=== PATIENT | female | born 1985 | race Caucasian/White ===

== ENCOUNTER 2018-08-08 21:33 | Emergency (ER) | payer OTHER, SELFPAY ==
--- NOTE | 2018-08-08 22:06 | EDPHYS ---
Physician Documentation [facility] Name: Reina Clements Age: 32 yrs Sex: Female : 1985 Arrival Date: 08/08/2018 Time: 21:34 Bed 24 Private MD: ED Physician Ishmael Ferreira HPI: 08/08 22:00 This 32 yrs old Female presents to ER via Ambulatory with complaints of pkl Animal Bite. 22:00 The patient presents with an abrasion. The complaints affect the right ankle. Onset: pkl The symptoms/episode began/occurred just prior to arrival. Context: Scratched by raccoon . Associated signs and symptoms: The patient has no apparent associated signs or symptoms. 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 - Social history:: Smoking status: Patient uses tobacco products, smokes one-half pack cigarettes per day. - Ebola Screening: : Patient denies travel to an Ebola-affected area in the 21 days before illness onset. ROS: 22:00 Eyes: Negative for injury, pain, redness, and discharge, ENT: Negative for injury, pkl pain, and discharge, Neck: Negative for injury, pain, and swelling, Cardiovascular: Negative for chest pain, palpitations, and edema, Respiratory: Negative for shortness of breath, cough, wheezing, and pleuritic chest pain, Abdomen/GI: Negative for abdominal pain, nausea, vomiting, diarrhea, and constipation, Back: Negative for injury and pain, : Negative for injury, bleeding, discharge, and swelling, Neuro: Negative for headache, weakness, numbness, tingling, and seizure. 22:00 MS/extremity: Positive for abrasion, of the right ankle. 22:00 Neuro: Negative for altered mental status. Exam: 22:00 Head/Face: Normocephalic, atraumatic. Eyes: Pupils equal round and reactive to light, pkl extra-ocular motions intact. Lids and lashes normal. Conjunctiva and sclera are non-icteric and not injected. Cornea within normal limits. Periorbital areas with no swelling, redness, or edema. ENT: Nares patent. No nasal discharge, no septal abnormalities noted. Tympanic membranes are normal and external auditory canals are clear. Oropharynx with no redness, swelling, or masses, exudates, or evidence of obstruction, uvula midline. Mucous membranes moist. Neck: Trachea midline, no thyromegaly or masses palpated, and no cervical lymphadenopathy. Supple, full range of motion without nuchal rigidity, or vertebral point tenderness. No Meningismus. Chest/axilla: Normal chest wall appearance and motion. Nontender with no deformity. No lesions are appreciated. Cardiovascular: Regular rate and rhythm with a normal S1 and S2. No gallops, murmurs, or rubs. Normal PMI, no JVD. No pulse deficits. Respiratory: Lungs have equal breath sounds bilaterally, clear to auscultation and percussion. No rales, rhonchi or wheezes noted. No increased work of breathing, no retractions or nasal flaring. Abdomen/GI: Soft, non-tender, with normal bowel sounds. No distension or tympany. No guarding or rebound. No evidence of tenderness throughout. Back: No spinal tenderness. No costovertebral tenderness. Full range of motion. Neuro: Awake and alert, GCS 15, oriented to person, place, time, and situation. Cranial nerves II-XII grossly intact. Motor strength 5/5 in all extremities. Sensory grossly intact. Cerebellar exam normal. Normal gait. 22:00 Musculoskeletal/extremity: Extremities: grossly normal except: noted in the right ankle: abrasion. Vital Signs: 21:44 BP 122 / 72; Pulse 88; Resp 18; Temp 97.7(TE); Pulse Ox 99% on R/A; Weight 56.7 kg (R); aj1 Height 5 ft. 3 in. (160.02 cm) (R); Pain 0/10; 21:44 Body Mass Index 22.14 (56.70 kg, 160.02 cm) aj1 MDM: 21:54 Patient medically screened. pkl 22:00 Data reviewed: vital signs, nurses notes. 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 Exp: rv 08/04/2020. Lot #: [id number]. } Route: IM; Site: right deltoid; 22:20 Follow up: Response: Medication administered at discharge. rv Disposition: 08/08/18 22:05 Discharged to Home. Impression: Abrasions right ankle. Scratched by raccoon. - Condition is Stable. - Medication Reconciliation Form, Thank You Letter, Antibiotic Education, Prescription Opioid Use form. - Follow up: Private Physician; When: 2 - 3 days; Reason: Re-evaluation by your physician. - Problem is new. - Symptoms have improved. Signatures: Chloe Cat RN RN aj1 Ishmael Ferreira MD MD pkl Salbador Trent RN RN rv Corrections: (The following items were deleted from the chart) 22:19 22:05 08/08/2018 22:05 Discharged to Home. Impression: Abrasions right ankle. Scratched rv by raccoon. Condition is Stable. Forms are Medication Reconciliation Form, Thank You Letter, Antibiotic Education, Prescription Opioid Use. Follow up: Private Physician; When: 2 - 3 days; Reason: Re-evaluation by your physician. Problem is new. Symptoms have improved. pkl
--- NOTE | 2018-08-08 22:06 | ER ---
Nurse's Notes [facility] Name: Reina Clements Age: 32 yrs Sex: Female : 1985 Arrival Date: 08/08/2018 Time: 21:34 Bed 24 Private MD: Diagnosis: Abrasions right ankle. Scratched by raccoon Presentation: 08/08 21:39 Presenting complaint: Patient states: "I got home from work and let me dogs out, they aj1 got in a fight with a raccoon and it got me. I don't know it it bit me or scratched me" Scratches noted to patient's right ankle. Transition of care: patient was not received from another setting of care. Onset of symptoms was August 08, 2018 at 20:45. Risk Assessment: Do you want to hurt yourself or someone else?. Initial Sepsis Screen: Does the patient meet any 2 criteria? No. Patient's initial sepsis screen is negative. Does the patient have a suspected source of infection? Yes: Skin breakdown/wound. Care prior to arrival: None. 21:39 Method Of Arrival: [facility] 21:39 Acuity: CHAPIN 4 aj1 Triage Assessment: 21:44 Bite description: by a raccoon animal information: Appearance: appeared well, aj1 vaccination(s) is not applicable was sustained 30-60 minutes ago. Animal status: unknown and not captured. General: Appears in no apparent distress. comfortable, Behavior is calm, cooperative, appropriate for age. Pain: Complains of pain in anterior aspect of right ankle. Neuro: Level of Consciousness is awake, alert, obeys commands. Cardiovascular: Patient's skin is warm and dry. Respiratory: Airway is patent Respiratory effort is even, unlabored, Respiratory pattern is regular, symmetrical. 22:19 Bite description: bite sustained to right foot. rv DIRECTOR PRESALES: 21:44 LMP N/A - Irregular menses aj1 Historical: - Allergies: 21:44 Amoxicillin; aj1 - Home Meds: 21:44 Lyrica Oral [Active]; diclofenac oral oral [Active]; aj1 - PMHx: 21:44 Fibromyalgia; Pneumonia; cardiomyopathy; aj1 - PSHx: 21:44 Tubal ligation; ankle surgery; aj1 - Immunization history:: Last tetanus immunization: unknown. - Social history:: Smoking status: Patient uses tobacco products, smokes one-half pack cigarettes per day. - Ebola Screening: : Patient denies travel to an Ebola-affected area in the 21 days before illness onset. Screenin:15 Abuse screen: Denies threats or abuse. Denies injuries from another. Nutritional rv screening: No deficits noted. Tuberculosis screening: No symptoms or risk factors identified. Fall Risk None identified. Assessment: 22:14 General: Appears in no apparent distress. comfortable, Behavior is calm, cooperative. rv Pain: Complains of pain in right foot. Neuro: Level of Consciousness is awake, alert, obeys commands, Oriented to person, place, time, situation. Cardiovascular: Capillary refill < 3 seconds. Respiratory: Airway is patent. GI: No signs and/or symptoms were reported involving the gastrointestinal system. : No signs and/or symptoms were reported regarding the genitourinary system. EENT: No signs and/or symptoms were reported regarding the EENT system. Derm: Skin has lesions on RIGHT FOOT Skin is pink, warm \\T\\ dry. Vital Signs: 21:44 BP 122 / 72; Pulse 88; Resp 18; Temp 97.7(TE); Pulse Ox 99% on R/A; Weight 56.7 kg (R); aj1 Height 5 ft. 3 in. (160.02 cm) (R); Pain 0/10; 21:44 Body Mass Index 22.14 (56.70 kg, 160.02 cm) aj1 ED Course: 21:34 Patient arrived in ED. ag3 21:42 Triage completed. aj1 21:44 Arm band placed on Patient placed in an exam room. aj1 21:54 Ishmael Ferreira MD is Attending Physician. pkl 22:15 No provider procedures requiring assistance completed. Patient did not have IV access rv during this emergency room visit. 22:18 Patient has correct armband on for positive identification. Bed in low position. Call rv light in reach. Side rails up X 1. Pulse ox on. NIBP on. 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 Exp: rv 08/04/2020. Lot #: [id number]. } Route: IM; Site: right deltoid; 22:20 Follow up: Response: Medication administered at discharge. rv Outcome: 22:05 Discharge ordered by . pkl 22:17 Discharged to home ambulatory. rv 22:17 Condition: good 22:17 Discharge instructions given to patient, Instructed on discharge instructions, follow up and referral plans. wound care, Demonstrated understanding of instructions, wound care. 22:19 Patient left the ED. rv Signatures: Chloe Cat, RN RN aj1 Ishmael Ferreira MD MD pkl Vicente, Ronaldo, RN RN rv Jennifer Ken
[2018-08-08] MEDS ORDERED: TETANUS & DIPHTHERIA TOX,ADULT 0.5 ML VIAL ONE (22:13)
== END 2018-08-08 22:19 | disposition home or self-care (01) ==
LOC: ER 21:33
DX: S90.511A Abrasion, right ankle, initial encounter (principal); W55.52XA Struck by raccoon, initial encounter; Y93.9 Activity, unspecified; Y92.9 Unspecified place or not applicable; Z23 Encounter for immunization; Z88.1 Allergy status to other antibiotic agents; F17.210 Nicotine dependence, cigarettes, uncomplicated
CPT/HCPCS: 90714; 99283

== ENCOUNTER 2018-11-08 19:43 | Emergency (ER) | payer SELFPAY ==
[2018-11-08 20:30] LABS: Absolute Monocytes 0.6 K/uL (0.1-1.3); Absolute Neutrophil 3.9 K/uL (1.8-8.0); Eosinophils % 1.4 % (0-4.4); Hematocrit 35.6 % (36.0-45.0); MPV 10.3 fL (7.6-11.3); Monocytes % 8.7 % (3.3-12.3); RBC Red Blood Cell Count 4.18 M/uL (3.86-4.86)
[2018-11-08] MEDS ORDERED: ASPIRIN EC 81 MG TAB PO ONE (20:37)
[2018-11-08 20:41] LABS: Protime INR 1.06
[2018-11-08 20:55] LABS: ALT/SGPT 26 U/L (12-78); AST/SGOT 16 U/L (15-37); Albumin 3.4 g/dL (3.4-5.0); Alkaline Phosphatase 86 U/L (45-117); BUN Blood Urea Nitrogen 12 mg/dL (7-18); Bicarbonate 26 mmol/L (21-32); Bilirubin Direct < 0.1 mg/dL (0-0.2); Bilirubin Total 0.3 mg/dL (0.2-1.0); Glucose Level 110 mg/dL (74-106); Lipase 77 U/L (73-393); NT PRO-BNP 50 pg/mL (<125); Potassium 3.6 mmol/L (3.5-5.1); Protein, Total 6.8 g/dL (6.4-8.2); Sodium Level 138 mmol/L (136-145); Troponin (Emerg Dept Use Only) < 0.02 ng/mL (0.0-0.045)
--- NOTE | 2018-11-08 21:15 | EDPHYS ---
Physician Documentation [facility] Name: Reina Clements Age: 33 yrs Sex: Female : 1985 Arrival Date: 11/08/2018 Time: 19:47 Bed 30 Private MD: Miller Cota E ED Physician Ruben Kaur HPI: 11/08 20:55 This 33 yrs old Female presents to ER via Ambulatory with complaints of Chest luz Pain. 20:55 The patient or guardian reports chest pain that is located primarily in the anterior luz chest wall, left. The pain radiates to. Associated signs and symptoms: The patient has no apparent associated signs or symptoms. The chest pain is described as sharp. Modifying factors: The symptoms are alleviated by remaining still, the symptoms are aggravated by breathing, deep breath, movement, palpation of area. Severity of pain: At its worst the pain was mild in the emergency department the pain is unchanged. The patient has not experienced similar symptoms in the past. 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 - Social history:: Smoking status: Patient uses tobacco products, smokes one pack cigarettes per day. - Ebola Screening: : No symptoms or risks identified at this time. ROS: 21:00 Constitutional: Negative for fever, chills, and weight loss, Eyes: Negative for injury, luz pain, redness, and discharge, ENT: Negative for injury, pain, and discharge, Neck: Negative for injury, pain, and swelling, Abdomen/GI: Negative for abdominal pain, nausea, vomiting, diarrhea, and constipation, Back: Negative for injury and pain, : Negative for injury, bleeding, discharge, and swelling, MS/Extremity: Negative for injury and deformity, Skin: Negative for injury, rash, and discoloration, Neuro: Negative for headache, weakness, numbness, tingling, and seizure, Psych: Negative for depression, anxiety, suicide ideation, homicidal ideation, and hallucinations, Allergy/Immunology: Negative for hives, rash, and allergies, Endocrine: Negative for neck swelling, polydipsia, polyuria, polyphagia, and marked weight changes, Hematologic/Lymphatic: Negative for swollen nodes, abnormal bleeding, and unusual bruising. 21:00 Cardiovascular: Positive for chest pain. 21:00 Respiratory: Positive for cough, shortness of breath, at rest. Exam: 21:00 Constitutional: This is a well developed, well nourished patient who is awake, alert, luz and in no acute distress. Head/Face: Normocephalic, atraumatic. Eyes: Pupils equal round and reactive to light, extra-ocular motions intact. Lids and lashes normal. Conjunctiva and sclera are non-icteric and not injected. Cornea within normal limits. Periorbital areas with no swelling, redness, or edema. ENT: Nares patent. No nasal discharge, no septal abnormalities noted. Tympanic membranes are normal and external auditory canals are clear. Oropharynx with no redness, swelling, or masses, exudates, or evidence of obstruction, uvula midline. Mucous membranes moist. Neck: Trachea midline, no thyromegaly or masses palpated, and no cervical lymphadenopathy. Supple, full range of motion without nuchal rigidity, or vertebral point tenderness. No Meningismus. Chest/axilla: Normal chest wall appearance and motion. Nontender with no deformity. No lesions are appreciated. Cardiovascular: Regular rate and rhythm with a normal S1 and S2. No gallops, murmurs, or rubs. Normal PMI, no JVD. No pulse deficits. Respiratory: Lungs have equal breath sounds bilaterally, clear to auscultation and percussion. No rales, rhonchi or wheezes noted. No increased work of breathing, no retractions or nasal flaring. Abdomen/GI: Soft, non-tender, with normal bowel sounds. No distension or tympany. No guarding or rebound. No evidence of tenderness throughout. Back: No spinal tenderness. No costovertebral tenderness. Full range of motion. Female : Normal external genitalia. Skin: Warm, dry with normal turgor. Normal color with no rashes, no lesions, and no evidence of cellulitis. Neuro: Awake and alert, GCS 15, oriented to person, place, time, and situation. Cranial nerves II-XII grossly intact. Motor strength 5/5 in all extremities. Sensory grossly intact. Cerebellar exam normal. Normal gait. Psych: Awake, alert, with orientation to person, place and time. Behavior, mood, and affect are within normal limits. 21:00 Musculoskeletal/extremity: ROM: intact in all extremities, full active range of motion, full passive range of motion, Circulation is intact in all extremities. Sensation intact. Compartment Syndrome exam of affected extremity: is normal. DVT Exam: No signs of deep vein thrombosis. no pain, no swelling, no tenderness, negative Homans' sign noted on exam, no appreciated bluish discoloration, no erythema, no increased warmth. Vital Signs: 19:51 BP 117 / 81; Pulse 82; Resp 16; Temp 98.2(O); Pulse Ox 98% on R/A; Weight 58.97 kg (R); ak1 Height 5 ft. 3 in. (160.02 cm) (R); Pain 6/10; 21:17 Pulse 65; Resp 18; Pulse Ox 100% on R/A; Pain 2/10; mg2 23:34 BP 120 / 78; Pulse 70; Resp 18; Pulse Ox 100% on R/A; Pain 0/10; mg2 19:51 Body Mass Index 23.03 (58.97 kg, 160.02 cm) ak1 MDM: 20:06 Patient medically screened. [facility] 21:01 Data reviewed: vital signs, nurses notes, lab test result(s), EKG, radiologic studies, [facility] CT scan, plain films. 11/08 20:08 Order name: Basic Metabolic Panel; Complete Time: 21:13 [facility] 11/08 20:08 Order name: CBC with Diff; Complete Time: 22:08 [facility] 11/08 20:08 Order name: LFT's; Complete Time: 21:13 [facility] 11/08 20:08 Order name: Magnesium; Complete Time: 21:13 [facility] 11/08 20:08 Order name: NT PRO-BNP; Complete Time: 21:13 [facility] 11/08 20:08 Order name: PT-INR; Complete Time: 20:54 [facility] 11/08 20:08 Order name: Troponin (emerg Dept Use Only); Complete Time: 21:13 [facility] 11/08 20:08 Order name: Urine Culture [facility] 11/08 20:08 Order name: Lipase; Complete Time: 21:13 [facility] 11/08 20:08 Order name: UDS; Complete Time: 22:08 [facility] 11/08 20:41 Order name: CBC Smear Scan; Complete Time: 22:08 EDMS 11/08 20:54 Order name: D-Dimer; Complete Time: 21:13 [facility] 11/08 21:18 Order name: Urine Dipstick--Ancillary (enter results) mw2 11/08 22:11 Order name: Blood Culture Adult (2) [facility] 11/08 20:08 Order name: XRAY Chest (1 view); Complete Time: 22:08 [facility] 11/08 20:08 Order name: EKG; Complete Time: 20: [facility] 11/08 20:08 Order name: Cardiac monitoring; Complete Time: 20:26 [facility] 11/08 20:08 Order name: EKG - Nurse/Tech; Complete Time: 20:26 [facility] 11/08 20:08 Order name: IV Saline Lock; Complete Time: 20:26 [facility] 11/08 20:08 Order name: Labs collected and sent; Complete Time: 20:26 [facility] 11/08 20:08 Order name: O2 Per Protocol; Complete Time: 20: [facility] 11/08 20:08 Order name: O2 Sat Monitoring; Complete Time: 20:26 [facility] 11/08 20:08 Order name: Urine Dipstick-Ancillary (obtain specimen); Complete Time: 21:16 [facility] 11/08 20:08 Order name: Urine Test (obtain specimen); Complete Time: 21:16 [facility] Administered Medications: 20:36 Drug: Aspirin 81 mg Route: PO; mg2 21:16 Follow up: Response: No adverse reaction mg2 22:12 CANCELLED (Duplicate Order): Rocephin - (cefTRIAXone) 1 grams IVPB once over 30 mins; [facility] (mix in 50 mL NS) 22:27 Drug: Zithromax 500 mg Route: IVPB; Infused Over: 1 hrs; Site: right antecubital; mg2 23:35 Follow up: Response: No adverse reaction; IV Status: Completed infusion mg2 22:28 Drug: TORadol 30 mg Route: IVP; Site: right antecubital; mg2 23:34 Follow up: Response: No adverse reaction; Marked relief of symptoms mg2 22:28 Drug: Rocephin 1 grams Route: IV; Rate: per protocol; Site: right antecubital; mg2 23:34 Follow up: Response: No adverse reaction; IV Status: Completed infusion mg2 Disposition: 11/08/18 21:14 Discharged to Home. Impression: Tobacco abuse counseling, Tobacco use, Pneumonia due to other specified bacteria, Pleurisy. - Condition is Stable. - Discharge Instructions: Nonspecific Chest Pain, Chest Wall Pain, Pleurisy, Steps to Quit Smoking, Smoking Hazards, Nonspecific Chest Pain, [id number], Community-Acquired Pneumonia, Adult, Cwnn-[id number], Steps to Quit Smoking, [id number], Aspirin and Your Heart, Pleurisy, Fnel-io-Mjil. - Prescriptions for Motrin IB 200 mg Oral Tablet - take 2 tablet by ORAL route every 6 hours As needed as needed with food; 30 tablet. Albuterol Sulfate 90 mcg/actuation - inhale 1-2 puff by INHALATION route every 4-6 hours; 1 Inhaler. Zithromax 500 mg Oral Tablet - take 1 tablet by ORAL route once daily for 4 days; 4 tablet. - Medication Reconciliation Form, Thank You Letter, Antibiotic Education, Prescription Opioid Use form. - Follow up: Private Physician; When: 2 - 3 days; Reason: Recheck today's complaints, Continuance of care, Re-evaluation by your physician. Follow up: A Delacruz; When: 2 - 3 days; Reason: Recheck today's complaints, Continuance of care, Re-evaluation by your physician. - Problem is new. - Symptoms have improved. Signatures: Dispatcher [employer] EDMS Ruben Kaur MD MD cha Krenek, Amber RN RN ak1 David Adan RN RN mg2 Corrections: (The following items were deleted from the chart) 22:12 22:11 Rocephin - (cefTRIAXone) 1 grams IVPB once over 30 mins; (mix in 50 mL NS) luz ordered. luz 22:12 21:14 11/08/2018 21:14 Discharged to Home. Impression: Other chest pain - wall pain; luz Tobacco abuse counseling; Tobacco use. Condition is Stable. Discharge Instructions: Nonspecific Chest Pain, Chest Wall Pain, Nonspecific Chest Pain, Rmmu-[id number], Aspirin and Your Heart, Steps to Quit Smoking, Smoking Hazards. Prescriptions for Motrin IB 200 mg Oral Tablet - take 2 tablet by ORAL route every 6 hours As needed as needed with food; 30 tablet. and Forms are Medication Reconciliation Form, Thank You Letter, Antibiotic Education, Prescription Opioid Use. Follow up: Private Physician; When: 2 - 3 days; Reason: Recheck today's complaints, Continuance of care, Re-evaluation by your physician. Follow up: A Delacruz; When: 2 - 3 days; Reason: Recheck today's complaints, Continuance of care, Re-evaluation by your physician. Problem is new. Symptoms have improved. [facility] 22:13 22:12 11/08/2018 21:14 Discharged to Home. Impression: Tobacco abuse counseling; luz Tobacco use; Pneumonia due to other specified bacteria. Condition is Stable. Discharge Instructions: Nonspecific Chest Pain, Chest Wall Pain, Nonspecific Chest Pain, Gtyz-uh-[id number], Aspirin and Your Heart, Steps to Quit Smoking, Smoking Hazards. Prescriptions for Motrin IB 200 mg Oral Tablet - take 2 tablet by ORAL route every 6 hours As needed as needed with food; 30 tablet. and Forms are Medication Reconciliation Form, Thank You Letter, Antibiotic Education, Prescription Opioid Use. Follow up: Private Physician; When: 2 - 3 days; Reason: Recheck today's complaints, Continuance of care, Re-evaluation by your physician. Follow up: A Delacruz; When: 2 - 3 days; Reason: Recheck today's complaints, Continuance of care, Re-evaluation by your physician. Problem is new. Symptoms have improved. [facility] 23:36 22:13 11/08/2018 21:14 Discharged to Home. Impression: Tobacco abuse counseling; mg2 Tobacco use; Pneumonia due to other specified bacteria; Pleurisy. Condition is Stable. Discharge Instructions: Nonspecific Chest Pain, Chest Wall Pain, Nonspecific Chest Pain, Moya-[id number]-[id number], Aspirin and Your Heart, Steps to Quit Smoking, Smoking Hazards. Prescriptions for Motrin IB 200 mg Oral Tablet - take 2 tablet by ORAL route every 6 hours As needed as needed with food; 30 tablet. and Forms are Medication Reconciliation Form, Thank You Letter, Antibiotic Education, Prescription Opioid Use. Follow up: Private Physician; When: 2 - 3 days; Reason: Recheck today's complaints, Continuance of care, Re-evaluation by your physician. Follow up: A Delacruz; When: 2 - 3 days; Reason: Recheck today's complaints, Continuance of care, Re-evaluation by your physician. Problem is new. Symptoms have improved. [facility]
--- NOTE | 2018-11-08 21:15 | ER ---
Nurse's Notes [facility] Name: Reina Clements Age: 33 yrs Sex: Female : 1985 Arrival Date: 11/08/2018 Time: 19:47 Bed 30 Private MD: Miller Cota E Diagnosis: Tobacco abuse counseling;Tobacco use;Pneumonia due to other specified bacteria;Pleurisy Presentation: 11/08 19:52 Presenting complaint: Patient states: left chest wall pain intermittent since 0900. pt ak1 denies SOB, denies N/V. Transition of care: patient was not received from another setting of care. Onset of symptoms was November 08, 2018. Risk Assessment: Do you want to hurt yourself or someone else? Patient reports no desire to harm self or others. Initial Sepsis Screen: Does the patient meet any 2 criteria? No. Patient's initial sepsis screen is negative. Does the patient have a suspected source of infection? No. Patient's initial sepsis screen is negative. Care prior to arrival: None. 19:52 Method Of Arrival: Ambulatory ak1 19:52 Acuity: CHAPIN 3 ak1 Triage Assessment: 19:53 General: Appears in no apparent distress. Behavior is calm, cooperative. 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 - Social history:: Smoking status: Patient uses tobacco products, smokes one pack cigarettes per day. - Ebola Screening: : No symptoms or risks identified at this time. Screenin:25 Abuse screen: Denies threats or abuse. Denies injuries from another. Nutritional mg2 screening: No deficits noted. Tuberculosis screening: No symptoms or risk factors identified. Fall Risk IV access (20 points). Assessment: 21:24 General: Appears in no apparent distress. comfortable, Behavior is calm, cooperative. mg2 Pain: Complains of pain in chest Pain does not radiate. Pain currently is 2 out of 10 on a pain scale. Quality of pain is described as aching, Pain began gradually, since morning Is intermittent. Neuro: Level of Consciousness is awake, alert, obeys commands, Oriented to person, place, time, situation. Cardiovascular: Capillary refill < 3 seconds Patient's skin is warm and dry. Chest pain is described as mild. Respiratory: Airway is patent Respiratory effort is even, unlabored, Respiratory pattern is regular, symmetrical. GI: No deficits noted. : No signs and/or symptoms were reported regarding the genitourinary system. EENT: No signs and/or symptoms were reported regarding the EENT system. Derm: Skin is intact, is healthy with good turgor, Skin is pink, warm \T\ dry. normal. Musculoskeletal: No signs and/or symptoms reported regarding the musculoskeletal system. 21:26 Reassessment: patient for discharge after results are back. mg2 Vital Signs: 19:51 BP 117 / 81; Pulse 82; Resp 16; Temp 98.2(O); Pulse Ox 98% on R/A; Weight 58.97 kg (R); ak1 Height 5 ft. 3 in. (160.02 cm) (R); Pain 6/10; 21:17 Pulse 65; Resp 18; Pulse Ox 100% on R/A; Pain 2/10; mg2 23:34 BP 120 / 78; Pulse 70; Resp 18; Pulse Ox 100% on R/A; Pain 0/10; mg2 19:51 Body Mass Index 23.03 (58.97 kg, 160.02 cm) ak1 ED Course: 19:47 Patient arrived in ED. dl4 19:47 Miller Cota MD is Private Physician. dl4 19:51 Arm band placed on Patient placed in an exam room, on a stretcher, Patient notified of ak1 wait time. 19:52 Triage completed. ak1 20:06 Ruben Kaur MD is Attending Physician. luz 20:07 David Adan RN is Primary Nurse. mg2 20:21 Inserted saline lock: 22 gauge in right antecubital area, using aseptic technique. Blood collected. 20:22 Initial lab(s) drawn, by wi, sent to lab. 21:08 X-ray completed. Portable x-ray completed in exam room. Patient tolerated procedure mh1 well. 21:09 XRAY Chest (1 view) In Process Unspecified. EDMS 21:14 Miguelina Delacruz MD is Referral Physician. luz 22:00 child monitor on. Pulse ox on. NIBP on. mg2 22:00 Patient has correct armband on for positive identification. mg2 23:34 No provider procedures requiring assistance completed. IV discontinued, intact, mg2 bleeding controlled, No redness/swelling at site. Pressure dressing applied. Patient maintains SpO2 saturation greater than 95% on room air. Administered Medications: 20:36 Drug: Aspirin 81 mg Route: PO; mg2 21:16 Follow up: Response: No adverse reaction mg2 22:12 CANCELLED (Duplicate Order): Rocephin - (cefTRIAXone) 1 grams IVPB once over 30 mins; luz (mix in 50 mL NS) 22:27 Drug: Zithromax 500 mg Route: IVPB; Infused Over: 1 hrs; Site: right antecubital; mg2 23:35 Follow up: Response: No adverse reaction; IV Status: Completed infusion mg2 22:28 Drug: TORadol 30 mg Route: IVP; Site: right antecubital; mg2 23:34 Follow up: Response: No adverse reaction; Marked relief of symptoms mg2 22:28 Drug: Rocephin 1 grams Route: IV; Rate: per protocol; Site: right antecubital; mg2 23:34 Follow up: Response: No adverse reaction; IV Status: Completed infusion mg2 Outcome: 21:14 Discharge ordered by . luz 23:35 Discharged to home ambulatory. mg2 23:35 Condition: stable 23:35 Discharge instructions given to patient, Instructed on discharge instructions, follow up and referral plans. medication usage, Demonstrated understanding of instructions, follow-up care, medications, Prescriptions given X 3. 23:36 Patient left the ED. mg2 Addendum: 11/12/2018 10:11 Addendum: Culture Results: Positive urine culture. Bacteria is resistant to, has i w intermediate sensitivity, or is not tested against prescribed antibiotics. Report given to SUSAN for further evaluation and then to potato pancake frier for follow up with patient. Phone call Attempt #1 pt c/o mild burning with urination, called in Ceftin 500 mg PO BID, #14, no refills, per Dr. Kaur. Signatures: Dispatcher [employer] EDAR Ruben Kaur MD MD cha Harvey, Martha 1 Diane Grady RN RN Yolanda Lamb RN RN ak1 David Adan RN RN mg2 Slim Wood4 Mitra Colon gm Corrections: (The following items were deleted from the chart) 10:16 10:11 Addendum: Culture Results: Positive urine culture. Bacteria is resistant to, has iw intermediate sensitivity, or is not tested against prescribed antibiotics. Report given to SUSAN for further evaluation and then to potato pancake frier for follow up with patient. Phone call Attempt #1 pt c/o mild burning with urination, called in Ceftin 500 mg PO BID, #14, no refills iw
[2018-11-08 21:20] LABS: Blood Morphology Comment NOT SEEN (NOT SEEN); Platelet Estimate ADEQ; Platelets, Giant FEW; Urine White Blood Cell Casts OK
[2018-11-08 21:23] LABS: Urine Blood 2+ (NEG); Urine Glucose NEGATIVE (NEG); Urine Protein NEGATIVE (NEG); Urine Specific Gravity <1.005 (1.005-1.030); Urine pH 6.5 (5.0-7.0)
[2018-11-08 21:38] LABS: Barbiturates NEGATIVE (NEGATIVE); Benzodiazepines NEGATIVE (NEGATIVE); Cocaine NEGATIVE (NEGATIVE); METHAMPHETAM NEGATIVE (NEGATIVE); Methadone NEGATIVE (NEGATIVE); Opiates NEGATIVE (NEGATIVE); Phencyclidine NEGATIVE (NEGATIVE); THC Cannibis POSITIVE (NEGATIVE)
--- NOTE | 2018-11-08 21:45 | RAD REPORT ---
EXAM DESCRIPTION: RAD - Chest Single View - 11/08/2018 9:09 pm CLINICAL HISTORY: Left-sided chest pain COMPARISON: October 2014 TECHNIQUE: AP portable chest image was obtained 2101 hours . FINDINGS: No focal consolidation. No failure or volume overload. Mild interstitial infiltrate seen i n the mid left lung field. Heart and vasculature are normal. No measurable pleural effusion and no pn eumothorax. No acute bony abnormality seen. No acute aortic findings suspected. IMPRESSION: Mild interstitial pneumonia left midlung field.
[2018-11-08] MEDS ORDERED: KETOROLAC 30 MG/ML INJ ONE (22:24)
[2018-11-08] MEDS ORDERED: AZITHROMYCIN 500 MG/250 ML BAG ONE (22:25)
[2018-11-08] MEDS ORDERED: WATER FOR INJ,STERILE 10 ML ONE (22:56)
[2018-11-08] MEDS ORDERED: CEFTRIAXONE 1000 MG/VIAL ONE (22:56)
--- NOTE | 2018-11-09 07:59 | EKG ---
Test Date: 2018-11-08 Test Time: 20:00:10 Supervisor Malted Milk: MEASUREMENT RESULTS: Intervals: Rate: 69 CT: 146 QRSD: 78 QT: 378 QTc: 405 Lingle: P: 8 CT: 146 QRS: 13 T: 32 INTERPRETIVE STATEMENTS: Normal sinus rhythm with sinus arrhythmia Normal ECG Compared to ECG 02/07/2016 22:17:27 Sinus tachycardia no longer present Electronically Signed On 11-09-18 07:58:49 SUPERVISOR ORNAMENTAL IRONWORKING by Hussein Nixon
== END 2018-11-08 23:36 | disposition home or self-care (01) ==
LOC: ER 19:43
DX: J15.8 Pneumonia due to other specified bacteria (principal); Z72.0 Tobacco use; Z71.6 Tobacco abuse counseling; Z88.1 Allergy status to other antibiotic agents
CPT/HCPCS: 36415; 71045; 80048; 80076; 80307; 81003; 83690; 83735; 83880; 84484; 85025; 85379; 85610; 87040; 87077; 87086; 87088; 87186; 93005; 96365; 96368; 96375; 99285; J0456

== ENCOUNTER 2020-09-27 13:01 | Emergency (ER) | payer OTHER ==
--- NOTE | 2020-09-27 13:25 | ER ---
Nurse's Notes [facility] Name: Reina Clements Age: 35 yrs Sex: Female : 1985 Arrival Date: 09/27/2020 Time: 13:03 Bed Waiting Private MD: Miller Cota E Diagnosis: ED Course: 09/27 13:03 Patient arrived in ED. mr 13:03 Miller Cota MD is Private Physician. mr 13:05 Patient Patient called, not in lobby or restroom. Was seen leaving ED talking on her ll1 cell phone. 13:15 Mandeep Lewis PA is PHCP. chip 13:15 Marv Connor MD is Attending Physician. chip Administered Medications: No medications were administered Outcome: 13:25 Patient left the ED. ll1 Signatures: Mandeep Lewis PA PA jmm Rivera, Mary mr CamposLois, RN RN 1
== END 2020-09-27 13:25 | disposition left against medical advice (07) ==
LOC: ER 13:01
DX: Z02.9 Encounter for administrative examinations, unspecified (principal)

== ENCOUNTER 2023-09-01 18:36 | Emergency (ER) | payer OTHER, SELFPAY ==
--- OUTSIDE RECORDS SUMMARY | 2023-09-01 18:39 | XMS REPORT | Continuity of Care Document ---
:1985 Author Organization [facility] t Address [address] [place] [address] Care Team Providers Name Role Phone Miller Cota Primary Care Physician Radiology Attending Clinician Unavailable RADIOLOGY Attending Clinician Unavailable Doctor Unassigned, Jessie Attending Clinician Unavailable Payers Payer Name Policy Type Policy Number Effective Date Expiration Date S ource Problems This patient has no known problems. Allergies, Adverse Reactions, Alerts Allergy Allergy Status Severity Reaction(s) Onset Inactive Treating Comm ents Source Name Type Date Date Clinician NO KNOWN Drug Active Univers ALLERGIE Class ity of S [facility] Social History Social Habit Start Date Stop Date Quantity Comments Source History of Smokes tobacco University of tobacco use daily [facility] Exposure to 2023-01-11 2023-01-21 Not sure [facility] SARS-CoV-2 00:00:00 13:38:00 [facility] (event) [place] Sex Assigned At [birth year] Universit y of 00:00:00 00:00:00 [facility] Smoking Status Start Date Stop Date Source Smokes tobacco daily [facility] Medications Ordered Filled Start Stop Current Ordering Indication Dosage Frequency Signature Comments Components Source Medication Medication Date Date Medication? Clinician (SIG) Name Name ALPRAZolam 2016- Yes 1mg Take 1 mg Un staci (XANAX) 1 2-23 by mouth 2 ity of mg tablet 13:36: (two) [place] 08 times Medical daily. Branch dextroamphe Yes 30mg Take 30 mg Univers tamine-amph 2-23 by mouth 2 it y of etamine 13:36: (two) [place] (ADDERALL) 08 times Medical 30 mg daily. Branch tablet amitriptyli 2017-0 Yes 75mg Take 75 mg Univers ne 75 mg 2-23 by mouth ity of tablet 13:36: at [place] [address] bedtime. Medical Branch pregabalin 2017-0 Yes 75mg Take 75 mg U nivers (LYRICA) 75 2-23 by mouth 2 it y of mg capsule 13:36: (two) [place] 08 times Medical daily. Branch ALPRAZolam 2017-0 Yes 1mg Take 1 mg Un staci (XANAX) 1 2-23 by mouth 2 ity of mg tablet 13:36: (two) [place] 08 times Medical daily. Branch dextroamphe 2017-0 Yes 30mg Take 30 mg Univers tamine-amph 2-23 by mouth 2 it y of etamine 13:36: (two) [place] (ADDERALL) 08 times Medical 30 mg daily. Branch tablet amitriptyli 2017-0 Yes 75mg Take 75 mg Univers ne 75 mg 2-23 by mouth ity of tablet 13:36: at [place] [address] bedtime. Medical Branch pregabalin 2017-0 Yes 75mg Take 75 mg U nivers (LYRICA) 75 2-23 by mouth 2 it y of mg capsule 13:36: (two) [place] 08 times Medical daily. Branch ALPRAZolam 2017-0 Yes 1mg Take 1 mg Un staci (XANAX) 1 2-23 by mouth 2 ity of mg tablet 13:36: (two) [place] 08 times Medical daily. Branch dextroamphe 2017-0 Yes 30mg Take 30 mg Univers tamine-amph 2-23 by mouth 2 it y of etamine 13:36: (two) [place] (ADDERALL) 08 times Medical 30 mg daily. Branch tablet amitriptyli 2017-0 Yes 75mg Take 75 mg Univers ne 75 mg 2-23 by mouth ity of tablet 13:36: at [place] [address] bedtime. Medical Branch pregabalin 2017-0 Yes 75mg Take 75 mg U nivers (LYRICA) 75 2-23 by mouth 2 it y of mg capsule 13:36: (two) [place] 08 times Medical daily. Branch mometasone 2017-0 Yes 2{spray Use 2 Uni vers 50 2-08 } Sprays in ity of mcg/actuati 00:00: each [place] on nasal 00 nostril 2 Medica l spray (two) Branch times daily. mometasone 2017-0 Yes 2{spray Use 2 Uni vers 50 2-08 } Sprays in ity of mcg/actuati 00:00: each [place] on nasal 00 nostril 2 Medica l spray (two) Branch times daily. mometasone 2017-0 Yes 2{spray Use 2 Uni vers 50 2-08 } Sprays in ity of mcg/actuati 00:00: each [place] on nasal 00 nostril 2 Medica l spray (two) Branch times daily. Procedures Procedure Date / Time Performed Performing Clinician [facility] e ASSIGNMENT OF BENEFITS 2023-01-28 14:44:35 Doctor Unassotilio, No [facility] [place] Name Medical Branch Encounters Start End Encounter Admission Attending Care Care Encounter Source Date/Time Date/Time Type Type Clinicians Facility Department ID 2023-01-28 2023-01-28 [facility] Radiology [facility] [id number] Univers 09:48:50 23:59:00 Encounter [place] [id number] ity [id number] [id number] [facility] lucy 806 Branch 2023-01-28 2023-01-28 [facility] Radiology [facility] [id number] Univers 09:48:34 23:59:00 Encounter [place] [id number] [id number] [id number] [facility] lucy 806 Branch 2023-01-28 2023-01-28 Outpatient R RADIOLOGY [facility] [id number] Univers 09:48:34 23:59:00 ity of [facility] 2023-01-28 2023-01-28 Orders Doctor DONNELL [id number] Univers 00:00:00 00:00:00 Only Unassigned, DEB[place] [id number] [facility] [id number] [place] as [id number] [facility] 009 Branch Results This patient has no known results.
--- NOTE | 2023-09-01 19:32 | RAD REPORT ---
EXAM DESCRIPTION: RAD - Chest Single View - 09/01/2023 7:27 pm CLINICAL HISTORY: COPD Chest pain. COMPARISON: Chest Single View dated 11/08/2018; CHEST SINGLE VIEW dated 10/09/2014 FINDINGS: Portable technique limits examination quality. Mild interstitial prominence may indicate interstitial pulmonary edema or nonspecific viral infection . The heart is normal in size. No displaced fractures.
[2023-09-01 19:40] LABS: Absolute Lymphocytes (CBC) 2.7 K/uL (0.7-4.9); Hematocrit 34.6 % (36.0-45.0); Lymphocytes % 34.1 % (15.3-44.8); MCV 88.6 fL (80-100); MPV 10.2 fL (7.6-11.3); Platelets 181 thou/uL (152-406)
[2023-09-01] MEDS ORDERED: KETOROLAC 30 MG/ML INJ ONE (19:40)
[2023-09-01] MEDS ORDERED: DIPHENHYDRAMINE 50 MG/ML VIAL ONE (19:40)
[2023-09-01] MEDS ORDERED: NA CHLORIDE 0.9% 1,000 ML ONE (19:40)
[2023-09-01 19:49] LABS: Albumin 3.2 g/dL (3.4-5.0); Bilirubin Total 0.3 mg/dL (0.2-1.0); Potassium 3.8 mEq/L (3.5-5.1); Protein, Total 6.4 g/dL (6.4-8.2); Troponin High Sensitivity 4.1 pg/mL (<58.9)
--- NOTE | 2023-09-01 19:59 | EDPHYS ---
Physician Documentation [facility] Name: Reina Clements Age: 37 yrs Sex: Female : 1985 Arrival Date: 09/01/2023 Time: 18:36 Bed 5 Private MD: ED Physician Ab Valenzuela HPI: 09/01 18:57 This 37 yrs old Female presents to ER via Ambulatory with complaints of Fast ec2 heart rate, Shortness Of Breath. 18:57 Patient arrives today due to concern for congestion and concern for palpitations. ec2 Patient reports that she been having some cough and cold symptoms ongoing for couple days as well as having some palpitations and feels like her heart rate is beating fast, states that her Apple Watch is detected heart rate at greater than 100 at times. Patient reports some associated headache pain as well. No vomiting, no diarrhea, no fevers or chills. Patient is a smoker.. 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 - Social history:: Smoking status: Patient reports the use of cigarette tobacco products, smokes one-half pack cigarettes per day. ROS: 18:57 Constitutional: as per hpi ec2 Exam: 18:57 Constitutional: GEN: NAD Head: atraumatic Eyes: EOMI Ears: External ears are ec2 normal. CV: regular rate LUNGS: no respiratory distress ABD: non-distended SKIN: no evidence of rashes MSK: no evidence of trauma NEURO: moves all extremities equally Vital Signs: 18:43 BP 124 / 85; Pulse 72; Resp 16; Temp 97.6; Pulse Ox 100% ; Weight 72.57 kg (R); Height cm10 5 ft. 3 in. ; 18:47 Pain 5/10; cm10 19:20 BP 114 / 76; Pulse 65; Resp 17 S; Pulse Ox 100% on R/A; ha1 20:25 BP 117 / 74; Pulse 71; Resp 16; Temp 98; Pulse Ox 100% on R/A; rv 18:43 Body Mass Index 28.34 (72.57 kg, 160.02 cm) cm10 18:47 Pain Scale: Adult cm10 Kayleen Coma Score: 20:25 Eye Response: spontaneous(4). Motor Response: obeys commands(6). Verbal Response: rv oriented(5). Total: 15. MDM: 18:42 Patient medically screened. ec2 18:57 ED course: Patient arrives today due to concern for URI signs and symptoms. Examination ec2 remarkable for well-appearing nontoxic dividual is otherwise in no acute distress. Will obtain lab work, EKG, chest x-ray as well as cardiac profile while treating the patient's symptoms with crystalloid, Toradol and Benadryl. Currently considering viral process, atypical ACS, electrolyte disturbances, anemia.. 19:19 ED course: EKG independently reviewed and interpreted by me, shows normal sinus rhythm, ec2 rate of 75, no acute ST segment elevations, nonconcerning intervals.. 19:35 ED course: Chest x-ray shows some patchy infiltrates, given the patient's COPD and ec2 infectious symptoms, will treat for pneumonia. Patient otherwise is reassuring in terms of vital signs and examination.. 19:57 ED course: CBC is reassuring, metabolic profile reassuring with appropriate ec2 electrolytes and renal function, troponin within normal ranges. Will discharge home with prescription for azithromycin for antibiotic coverage for her pulmonary pathology. Return precautions given. . 19:59 Data reviewed: vital signs. ec2 09/01 18:55 Order name: CBC with Diff; Complete Time: 19:57 ec2 09/01 18:55 Order name: CMP; Complete Time: 19:57 ec2 09/01 18:55 Order name: Troponin High Sensitivity; Complete Time: 19:57 ec2 09/01 18:55 Order name: CXR XRAY; Complete Time: 19:35 ec2 09/01 18:55 Order name: EKG; Complete Time: 18:55 ec2 09/01 18:55 Order name: EKG - Nurse/Tech; Complete Time: 19:24 ec2 Administered Medications: 19:30 Drug: NS 0.9% IV 1000 ml IV at 1 bolus Per protocol; 1000 mL bolus Route: IV; Rate: 1 ha1 bolus; Site: right antecubital; 20:25 Follow up: IV Status: Completed infusion; IV Intake: 1000ml rv 19:31 Drug: diphenhydrAMINE IVP 25 mg IVP once Route: IVP; Site: right antecubital; ha1 20:25 Follow up: Response: No adverse reaction rv 19:33 Drug: Ketorolac IVP 15 mg IVP once Route: IVP; Site: right antecubital; ha1 20:25 Follow up: Response: No adverse reaction rv 19:52 Drug: AZITHromycin PO 500 mg PO once Route: PO; rv 20:25 Follow up: Response: No adverse reaction rv Disposition Summary: 09/01/23 19:58 Discharge Ordered Notes: Location: Home ec2 Condition: Stable ec2 Diagnosis - Pneumonia, unspecified organism ec2 Discharge Instructions: - Discharge Summary Sheet ec2 - Community-Acquired Pneumonia, Adult ec2 Forms: - Medication Reconciliation Form ec2 - Thank You Letter ec2 - Antibiotic Education ec2 - Prescription Opioid Use ec2 - Patient Portal Instructions ec2 - Leadership Thank You Letter ec2 Prescriptions: - azithromycin 250 mg Oral tablet - take 1 tablet ORAL route once for 4 days; 4 tablet; Refills: 0, Product ec2 Selection Permitted Signatures: Dispatcher [employer] Salbador Miranda RN RN Esperanza Bustamante RN RN ha1 Coral Stapleton RN RN cm10 Ab Valenzuela MD MD ec2 Corrections: (The following items were deleted from the chart) 19:19 19:01 ED course: CT abdomen pelvis shows cystitis. . ec2 ec2
--- NOTE | 2023-09-01 19:59 | ER ---
Nurse's Notes [facility] Name: Reina Clements Age: 37 yrs Sex: Female : 1985 Arrival Date: 09/01/2023 Time: 18:36 Bed 5 Private MD: Diagnosis: Pneumonia, unspecified organism Presentation: 09/01 18:43 Chief complaint: Patient states: "I have been feeling really weird the last few days cm10 and I have been having shortness of breath. My watch keeps going off telling me that my heart rate is greater than 100. I just feel weird. I have a headache". Coronavirus screen: Vaccine status: Patient reports receiving the 2nd dose of the covid vaccine. Client denies travel out of the [place] in the last 14 days. Ebola Screen: Patient denies travel to an Ebola-affected area in the 21 days before illness onset. No symptoms or risks identified at this time. Initial Sepsis Screen: Does the patient meet any 2 criteria? No. Patient's initial sepsis screen is negative. Does the patient have a suspected source of infection? No. Patient's initial sepsis screen is negative. Risk Assessment: Do you want to hurt yourself or someone else? Patient reports no desire to harm self or others. Onset of symptoms was September 01, 2023. 18:43 Method Of Arrival: Ambulatory 10 18:43 Acuity: CHAPIN 3 cm10 Triage Assessment: 19:40 Respiratory: Reports shortness of breath Airway is patent Respiratory effort is even, ha1 unlabored, Respiratory pattern is regular, symmetrical, Onset: The symptoms/episode began/occurred gradually, the patient has mild shortness of breath. TURNTABLE MAN: 18:47 LMP 08/31/2023, unknown cm10 Historical: - Allergies: 18:45 Amoxicillin; cm10 - PMHx: 18:45 Fibromyalgia; Pneumonia; cardiomyopathy; cm10 - Immunization history:: Adult Immunizations unknown. - Social history:: Smoking status: Patient reports the use of cigarette tobacco products, smokes one-half pack cigarettes per day. Screenin:05 [facility] ED Fall Risk Assessment (Adult) History of falling in the last 3 months, ha1 including since admission No falls in past 3 months (0 pts) Confusion or Disorientation No (0 pts) Intoxicated or Sedated No (0 pts) Impaired Gait No (0 pts) Mobility Assist Device Used No (0 pt) Altered Elimination No (0 pt) Score/Fall Risk Level 0 - 2 = Low Risk Oriented to surroundings, Maintained a safe environment, Educated pt \\T\\ family on fall prevention, incl call for assistance when getting out of bed, Hourly rounding (assess needs \\T\\ fall precautionary measures) done. Abuse screen: Denies threats or abuse. Denies injuries from another. Nutritional screening: No deficits noted. Tuberculosis screening: No symptoms or risk factors identified. Assessment: 19:15 General: Appears comfortable, Behavior is calm, cooperative. Pain: Complains of pain in ha1 headache and left shoulder Pain does not radiate. Pain currently is 7 out of 10 on a pain scale. Quality of pain is described as pressure. Neuro: Level of Consciousness is awake, alert, obeys commands, Oriented to person, place, time, situation. Cardiovascular: Reports shortness of breath, Capillary refill < 3 seconds Patient's skin is warm and dry. Rhythm is sinus rhythm. Respiratory: Reports shortness of breath at rest Airway is patent Respiratory effort is even, unlabored, Respiratory pattern is regular, symmetrical, Breath sounds are clear bilaterally. GI: No signs and/or symptoms were reported involving the gastrointestinal system. Abdomen is round non-distended. : No signs and/or symptoms were reported regarding the genitourinary system. Musculoskeletal: Circulation, motion, and sensation intact. Range of motion: intact in all extremities. Vital Signs: 18:43 BP 124 / 85; Pulse 72; Resp 16; Temp 97.6; Pulse Ox 100% ; Weight 72.57 kg (R); Height cm10 5 ft. 3 in. ; 18:47 Pain 5/10; cm10 19:20 BP 114 / 76; Pulse 65; Resp 17 S; Pulse Ox 100% on R/A; ha1 20:25 BP 117 / 74; Pulse 71; Resp 16; Temp 98; Pulse Ox 100% on R/A; rv 18:43 Body Mass Index 28.34 (72.57 kg, 160.02 cm) cm10 18:47 Pain Scale: Adult cm10 [place] Coma Score: 20:25 Eye Response: spontaneous(4). Motor Response: obeys commands(6). Verbal Response: rv oriented(5). Total: 15. ED Course: 18:40 Patient arrived in ED. ts1 18:42 Ab Valenzuela MD is Attending Physician. ec2 18:45 Triage completed. cm10 18:48 Arm band placed on Patient placed in an exam room, on a stretcher. cm10 19:00 Patient has correct armband on for positive identification. Placed in gown. Bed in low ha1 position. Call light in reach. Side rails up X 1. 19:15 Inserted saline lock: 22 gauge in right antecubital area, using aseptic technique. ha1 Blood collected. 19:24 Troponin High Sensitivity Sent. ha1 19:24 CMP Sent. ha1 19:24 CBC with Diff Sent. ha1 19:28 CXR XRAY In Process Unspecified. EDMS 19:34 Esperanza Bustamante, BRIDGETT is Primary Nurse. ha1 20:24 No provider procedures requiring assistance completed. IV discontinued, intact, rv bleeding controlled, No redness/swelling at site. Pressure dressing applied. Administered Medications: 19:30 Drug: NS 0.9% IV 1000 ml IV at 1 bolus Per protocol; 1000 mL bolus Route: IV; Rate: 1 ha1 bolus; Site: right antecubital; 20:25 Follow up: IV Status: Completed infusion; IV Intake: 1000ml rv 19:31 Drug: diphenhydrAMINE IVP 25 mg IVP once Route: IVP; Site: right antecubital; ha1 20:25 Follow up: Response: No adverse reaction rv 19:33 Drug: Ketorolac IVP 15 mg IVP once Route: IVP; Site: right antecubital; ha1 20:25 Follow up: Response: No adverse reaction rv 19:52 Drug: AZITHromycin PO 500 mg PO once Route: PO; rv 20:25 Follow up: Response: No adverse reaction rv Medication: 19:40 VIS not applicable for this client. ha1 Intake: 20:25 IV: 1000ml; Total: 1000ml. rv Outcome: 19:58 Discharge ordered by . ec2 20:25 Discharged to home ambulatory, with family, rv 20:25 Condition: good 20:25 Discharge instructions given to patient, Instructed on discharge instructions, follow up and referral plans. medication usage, Demonstrated understanding of instructions, follow-up care, medications, Prescriptions given X 1, 20:26 Patient left the ED. rv Signatures: Dispatcher [employer] EDMS Gee Trentaldo, RBIDGETT RN rv Esperanza Bustamante RN RN ha1 Alicia Guerrero PAS PAS ts1 Coral Stapleton RN RN cm10 Ab Valenzuela MD MD ec2
[2023-09-01] MEDS ORDERED: AZITHROMYCIN 250 MG TAB ONE (20:02)
--- NOTE | 2023-09-02 07:58 | EKG ---
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
[2023-09-02 16:08] VITALS: BP 117/74; TEMP 98; O2SAT 100
== END 2023-09-01 20:26 | disposition home or self-care (01) ==
LOC: ER 18:36
DX: J18.9 Pneumonia, unspecified organism (principal); F17.210 Nicotine dependence, cigarettes, uncomplicated; Z88.1 Allergy status to other antibiotic agents
CPT/HCPCS: 36415; 71045; 80053; 84484; 85025; 93005; J1200; J7030

== ENCOUNTER → 2024-01-14 | Emergency (ER) | payer OTHER ==
[~2024-01-14] MED LIST: DIPHENHYDRAMINE 50 MG/ML VIAL ONE; KETOROLAC 30 MG/ML INJ ONE; METOCLOPRAMIDE 10 MG/2mL INJ ONE; NA CHLORIDE 0.9% 1,000 ML ONE
--- OUTSIDE RECORDS SUMMARY | 2024-01-14 23:37 | XMS REPORT | Continuity of Care Document ---
Author Name Unknown Address [address] [place] [address] [facility] Address [address] [place] [address] Care Team Providers [employer] Name Role Phone Miller Cota Primary Care Physician [phone] [email or web address] Attending Clinician Unavaila ble Radiology Attending Clinician Unavailable RADIOLOGY Attending Clinician Unavailable Doctor Unassigned, Enhaut Attending Clinician U navailable [email or web address] Admitting Clinician Unavaila ble Payers Payer Name Policy Type Policy Number Effective Date Expirati on Date Source Allergies, Adverse Reactions, Alerts Allergy Name Allergy Type Status Severity Reaction(s) Onset Date Inactive Date Treating Clinician Comments Source NO KNOWN ALLERGIE S Drug Class Active [facility] Social History Social Habit Start Date Stop Date Quantity Comments Source History of tobacco use Smokes tobacco daily [facility] Exposure to SARS-CoV-2 (event) 2023-01-11 00:00:00 2023-01-21 13:38:00 Not sure [facility] Sex Assigned At 1985 00:00[birth year]00 1985 00:00:00 [facility] Smoking Status Start Date Stop Date Source Smokes tobacco daily [facility] Medications Ordered Medication Name Filled Medication Name Start Date Stop Date Current Medication? Ordering Clinician Indication Dosage Frequency Signature (SIG) Comments Components Source ALPRAZolam (XANAX) 1 mg tablet 12-31 13:36: 08 Yes 1mg Take 1 mg by mouth 2 (two) times daily. [facility] dextroamphe tamine-amph etamine (ADDERALL) 30 mg tablet 12-31 13:36: 08 Yes 30mg Take 30 mg by mouth 2 (two) times daily. [facility] amitriptyli ne 75 mg tablet 12-31 13:36: 08 Yes 75mg Take 75 mg by mouth at bedtime. [facility] pregabalin (LYRICA) 75 mg capsule 12-31 13:36: 08 Yes 75mg Take 75 mg by mouth 2 (two) times daily. [facility] ALPRAZolam (XANAX) 1 mg tablet 12-31 13:36: 08 Yes 1mg Take 1 mg by mouth 2 (two) times daily. [facility] dextroamphe tamine-amph etamine (ADDERALL) 30 mg tablet 12-31 13:36: 08 Yes 30mg Take 30 mg by mouth 2 (two) times daily. [facility] amitriptyli ne 75 mg tablet 12-31 13:36: 08 Yes 75mg Take 75 mg by mouth at bedtime. [facility] pregabalin (LYRICA) 75 mg capsule 12-31 13:36: 08 Yes 75mg Take 75 mg by mouth 2 (two) times daily. [facility] ALPRAZolam (XANAX) 1 mg tablet 12-31 13:36: 08 Yes 1mg Take 1 mg by mouth 2 (two) times daily. [facility] dextroamphe tamine-amph etamine (ADDERALL) 30 mg tablet 12-31 13:36: 08 Yes 30mg Take 30 mg by mouth 2 (two) times daily. [facility] amitriptyli ne 75 mg tablet 12-31 13:36: 08 Yes 75mg Take 75 mg by mouth at bedtime. [facility] pregabalin (LYRICA) 75 mg capsule 12-31 13:36: 08 Yes 75mg Take 75 mg by mouth 2 (two) times daily. [facility] mometasone 50 mcg/actuati on nasal spray 12-16 00:00: 00 Yes 2{spray } Use 2 Sprays in each nostril 2 (two) times daily. [facility] mometasone 50 mcg/actuati on nasal spray 12-16 00:00: 00 Yes 2{spray } Use 2 Sprays in each nostril 2 (two) times daily. [facility] mometasone 50 mcg/actuati on nasal spray 12-16 00:00: 00 Yes 2{spray } Use 2 Sprays in each nostril 2 (two) times daily. [facility] Procedures Procedure Date / Time Performed Performing Clinicia n Source ASSIGNMENT OF BENEFITS 2023-01-28 14:44:35 Docto r Unassigned, Enhaut [facility] Encounters Start Date/Time End Date/Time Encounter Type Admission Type Attending [facility] Facility Care Department Encounter ID Source 2023-09-05 00:00:00 2023-09-05 00:00:00 Outpatient [email or web address] [facility] [id number] [facility] 2023-01-28 09:48:50 2023-01-28 23:59:00 Hospital Encounter Radiology [facility] [id number] [facility] 2023-01-28 09:48:34 2023-01-28 23:59:00 Hospital Encounter Radiology [facility] [id number] [facility] 2023-01-28 09:48:34 2023-01-28 23:59:00 Outpatient R RADIOLOGY [facility] [id number] [facility] 2023-01-28 00:00:00 2023-01-28 00:00:00 Orders Only Doctor Unassigned, Enhaut [facility] [id number] [facility]
[2024-01-15 00:33] LABS: Absolute Lymphocytes (CBC) 2.1 K/uL (0.7-4.9); Basophils % 0.3 % (0-1.3); Hematocrit 35.6 % (36.0-45.0); Lymphocytes % 21.9 % (15.3-44.8); MPV 10.7 fL (7.6-11.3); Platelets 181 thou/uL (152-406); RBC Red Blood Cell Count 4.18 M/uL (3.86-4.86)
[2024-01-15 00:35] LABS: Specific Gravity 1.027 (1.005-1.030); Urine Bacteria None Seen /HPF (<20); Urine Bilirubin NEGATIVE (Negative); Urine Blood Negative (Negative); Urine Clarity Clear (Clear); Urine Color Yellow (Yellow); Urine Glucose NEGATIVE (Negative); Urine Protein TRACE (Negative); Urine RBC <5 /HPF (None Seen); Urine Urobilinogen Normal (Normal); Urine Yeast (Budding) Trace /HPF (None Seen)
[2024-01-15 00:38] LABS: Protime INR 1.14
[2024-01-15 00:39] LABS: Specific Gravity 1.027 (1.005-1.030)
[2024-01-15 00:56] LABS: Albumin 3.5 g/dL (3.4-5.0); Anion Gap 7.7 mEq/L (5.0-15.0); Barbiturates NEGATIVE (NEGATIVE); Benzodiazepines NEGATIVE (NEGATIVE); Bilirubin Direct 0.2 mg/dL (0-0.2); Bilirubin Indirect, Calculated 0.5 mg/dL (0.2-0.8); Bilirubin Total 0.7 mg/dL (0.2-1.0); Cocaine NEGATIVE (NEGATIVE); METHAMPHETAM POSITIVE (NEGATIVE); Magnesium 1.8 mg/dL (1.6-2.4); Methadone NEGATIVE (NEGATIVE); Opiates POSITIVE (NEGATIVE); Phencyclidine NEGATIVE (NEGATIVE); Potassium 3.7 mEq/L (3.5-5.1); Protein, Total 6.9 g/dL (6.4-8.2); THC Cannibis POSITIVE (NEGATIVE); Troponin High Sensitivity 4.4 pg/mL (<58.9)
--- NOTE | 2024-01-15 02:55 | EDPHYS ---
Physician Documentation [facility] Name: Reina Clements Age: 38 yrs Sex: Female : 1985 Arrival Date: 01/14/2024 Time: 23:26 Bed 2 Private MD: ED Physician Anil Madison HPI: 01/13 23:35 This 38 yrs old Female presents to ER via Unassigned with complaints of sp4 Shortness Of Breath, High heart rate. 01/14 03:25 Patient states she was at home when she developed rapid onset of heart rate with her sp4 Apple Watch alarming patient with rapid heart rate. Patient had 2 episode of rapid tachycardia. She developed dizziness and dyspnea. This has mostly resolved prior to arrival. Patient reports elevated intake of caffeine drinking 5-hour energy shots also consuming some energy beverages. Denies history of ADHD and she takes periodically Adderall 20 mg twice a day. Patient states she should be on Adderall 20 mg twice a day but does not take it consistently. Denied use of recreational drug. Historical: - Allergies: 01/13 23:37 Amoxicillin; kd3 - PMHx: 23:37 Fibromyalgia; Pneumonia; cardiomyopathy; kd3 - Immunization history:: Adult Immunizations up to date. - Social history:: Smoking status: Patient reports the use of cigarette tobacco products, smokes one-half pack cigarettes per day. - Family history:: not pertinent. ROS: 01/14 03:25 Constitutional: Negative for fever, chills, and weight loss, Cardiovascular: Positive sp4 rapid heart rate and positive shortness of breath All other systems are negative, Exam: 01:10 ECG was reviewed by the Attending Physician. EKG 2337 normal sinus rhythm with sinus sp4 arrhythmia right atrial enlargement otherwise normal , EKG rate 93 bpm 03:25 Constitutional: This is a well developed, well nourished patient who is awake, alert, sp4 and in no acute distress. Head/Face: Normocephalic, atraumatic. Eyes: Pupils equal round and reactive to light, extra-ocular motions intact. Lids and lashes normal. Conjunctiva and sclera are not injected. Cornea within normal limits. Periorbital areas with no swelling, redness, or edema. ENT: Nares patent. No nasal discharge, no septal abnormalities noted. Tympanic membranes are normal and external auditory canals are clear. Oropharynx with no redness, swelling, or masses, exudates, or evidence of obstruction, uvula midline. Mucous membranes moist. Neck: Trachea midline, no thyromegaly or masses palpated, and no cervical lymphadenopathy. Supple, full range of motion without nuchal rigidity, or vertebral point tenderness. Chest/axilla: Normal chest wall appearance and motion. Nontender with no deformity. No lesions are appreciated. Cardiovascular: Regular rate and rhythm with a normal S1 and S2. No gallops, murmurs, or rubs. Normal PMI, no JVD. No pulse deficits. Respiratory: Lungs have equal breath sounds bilaterally, clear to auscultation and percussion. No rales, rhonchi or wheezes noted. No increased work of breathing, no retractions or nasal flaring. Abdomen/GI: Soft, with normal bowel sounds. No distension or tympany. No guarding or rebound. No evidence of tenderness throughout. Back: No spinal tenderness. No costovertebral tenderness. Skin: Warm, dry with normal turgor. Normal color with no rashes, no lesions, and no evidence of cellulitis. MS/ Extremity: Pulses equal, no cyanosis. Neurovascular intact. Full, normal range of motion. Neuro: Awake and alert, GCS 15, oriented to person, place, time, and situation. Cranial nerves II-XII grossly intact. Motor strength 5/5 in all extremities. Sensory grossly intact. Psych: Awake, alert, with orientation to person, place and time. Behavior, mood, and affect are within normal limits Vital Signs: 01/13 23:35 BP 129 / 87; Pulse 110; Resp 16; Temp 98.1(O); Pulse Ox 98% ; Weight 70.31 kg; Height 5 kd3 ft. 3 in. ; Pain 6/10; 01/14 00:23 BP 112 / 75; Pulse 86; Resp 16; Pulse Ox 96% on R/A; km8 01:00 BP 111 / 73; Pulse 81; Resp 16; Pulse Ox 99% on R/A; km8 03:11 BP 91 / 56; Pulse 87; Resp 16; Pulse Ox 98% on R/A; km8 01/13 23:35 Body Mass Index 27.46 (70.31 kg, 160.02 cm) kd3 01/13 23:35 Pain Scale: Adult kd3 [place] Coma Score: 00:23 Eye Response: spontaneous(4). Motor Response: obeys commands(6). Verbal Response: km8 oriented(5). Total: 15. 03:25 Eye Response: spontaneous(4). Motor Response: obeys commands(6). Verbal Response: sp4 oriented(5). Total: 15. MDM: 01/13 23:37 Patient medically screened. 4 01/14 02:48 ED course: EXAM: XR Chest, 1 View CLINICAL HISTORY: The patient is 38 years old and is sp4 Female; CHEST PAIN TECHNIQUE: Frontal view of the chest. COMPARISON: No relevant prior studies available. FINDINGS: Lungs: Unremarkable. No consolidation. Pleural space: Unremarkable. No pneumothorax. Heart: Unremarkable. Mediastinum: Unremarkable. Normal mediastinal contour. Bones/joints: No acute findings. IMPRESSION: No acute findings in the chest. . 03:25 Differential diagnosis: Anxiety Reaction pneumonia, Psychogenic. Data reviewed: vital 4 signs, nurses notes, lab test result(s), EKG, radiologic studies, plain films. Consideration of Admission/Observation Escalation of care including admission/observation considered. ED course: For methamphetamine although she denies drug use. This may be cross-reactivity with Adderall. Patient has proven to have negative workup today. Patient stable for discharge home. Will refer to wet sander on outpatient basis for Holter monitor and echocardiogram.. 01/13 23:36 Order name: Basic Metabolic Panel; Complete Time: 01: 4 01/13 23:36 Order name: CBC with Diff; Complete Time: : 4 01/13 23:36 Order name: LFT's; Complete Time: : sp4 01/13 23:36 Order name: Magnesium; Complete Time: 01: sp4 01/13 23:36 Order name: NT PRO-BNP; Complete Time: 01: 4 01/13 23:36 Order name: PT-INR; Complete Time: 01: sp4 01/13 23:36 Order name: Troponin HS; Complete Time: : sp4 01/13 23:37 Order name: Test, Urine; Complete Time: 01: 4 01/13 23:37 Order name: Urinalysis W/Microscopic; Complete Time: 01: 4 01/13 23:37 Order name: Urine Drug Screen; Complete Time: 01:09 4 01/13 23:36 Order name: XRAY Chest (1 view) 4 01/13 23:36 Order name: EKG; Complete Time: 23:36 4 01/13 23:36 Order name: Cardiac monitoring; Complete Time: 00:23 4 01/13 23:36 Order name: EKG - Nurse/Tech; Complete Time: 23:49 4 01/13 23:36 Order name: IV Saline Lock; Complete Time: 00:07 4 01/13 23:36 Order name: Labs collected and sent; Complete Time: 00:07 4 01/13 23:36 Order name: O2 Per Protocol; Complete Time: 00: 4 01/13 23:36 Order name: O2 Sat Monitoring; Complete Time: 00: EC:10 Rate is 93 beats/min. Rhythm is regular, Normal Sinus Rhythm. QRS [place] is Normal. ID sp4 interval is normal. QRS interval is normal. QT interval is normal. No Q waves. T waves are Normal. No ST changes noted. Clinical impression: No evidence of ischemia. Interpreted by me. Reviewed by me. Administered Medications: 00:07 Drug: NS 0.9% IV 1000 ml IV at 1 bolus Per protocol; 1000 mL bolus Route: IV; Rate: 1 kd3 bolus; Site: right antecubital; 03:13 Follow up: IV Status: Completed infusion; IV Intake: 1000ml [facility] 00:23 Drug: NS 0.9% IV 1000 ml IV at 125 ml/hr continuous Route: IV; Rate: 125 ml/hr; Site: [facility] right antecubital; 03:13 Follow up: IV Status: Completed infusion; IV Intake: 200ml 8 01:25 Drug: Ketorolac IVP 30 mg IVP once Route: IVP; Site: right antecubital; 8 02:30 Follow up: Response: No adverse reaction; Pain is decreased 8 01:25 Drug: metoCLOPramide IVP 10 mg IVP once; over 1 to 2 minutes Route: IVP; Site: right [facility] antecubital; 02:30 Follow up: Response: No adverse reaction; Pain is decreased [facility] 01:25 Drug: diphenhydrAMINE IVP 25 mg IVP once Route: IVP; Site: right antecubital; km8 02:30 Follow up: Response: No adverse reaction; Pain is decreased km8 Disposition Summary: 01/15/24 02:55 Discharge Ordered Problem: new sp4 Symptoms: have improved sp4 Condition: Fair sp4 Diagnosis - Tachycardia, unspecified sp4 Followup: sp4 - With: Jori Tejeda MD - When: 7 - 10 days - Reason: Recheck today's complaints Discharge Instructions: - Discharge Summary Sheet sp4 - Sinus Tachycardia sp4 Forms: - Patient Portal Instructions sp4 Signatures: Dispatcher [employer] Lucy Harp RN RN kd3 Anil Madison MD MD sp4 Nilda London RN RN km8
--- NOTE | 2024-01-15 02:55 | ER ---
Nurse's Notes [facility] Name: Reina Clements Age: 38 yrs Sex: Female : 1985 Arrival Date: 01/14/2024 Time: 23:26 Bed 2 Private MD: Diagnosis: Tachycardia, unspecified Presentation: 01/13 23:36 Coronavirus screen: Vaccine status: Patient reports receiving the 1st dose of the Covid kd3 vaccine. Ebola Screen: No symptoms or risks identified at this time. Initial Sepsis Screen: Does the patient meet any 2 criteria? No. Patient's initial sepsis screen is negative. Does the patient have a suspected source of infection? No. Patient's initial sepsis screen is negative. Risk Assessment: Do you want to hurt yourself or someone else? Patient reports no desire to harm self or others. Onset of symptoms was January 14, 2024. 23:36 Method Of Arrival: Ambulatory kd3 23:36 Acuity: CHAPIN 3 kd3 23:37 Chief complaint: Patient states: I was just at my house and my watch notified me that kd3 my heart rate was high so i sat and waited to try to see if it would come down. Then my heart rate jumped up to the 170's and i got really short of breath. I got really scared but then it came down. I tried to just ignore it but then it happened a second time so i came here. No i have a headache. Triage Assessment: 23:37 General: Appears in no apparent distress. Behavior is calm, cooperative. Pain: kd3 Complains of pain in headache. Respiratory: Reports shortness of breath Onset: The symptoms/episode began/occurred gradually, the patient has mild shortness of breath. Historical: - Allergies: 23:37 Amoxicillin; kd3 - PMHx: 23:37 Fibromyalgia; Pneumonia; cardiomyopathy; kd3 - Immunization history:: Adult Immunizations up to date. - Social history:: Smoking status: Patient reports the use of cigarette tobacco products, smokes one-half pack cigarettes per day. - Family history:: not pertinent. Screenin/09 00:[address] [facility] ED Fall Risk Assessment (Adult) History of falling in the last 3 months, km8 including since admission No falls in past 3 months (0 pts) Confusion or Disorientation No (0 pts) Intoxicated or Sedated No (0 pts) Impaired Gait No (0 pts) Mobility Assist Device Used No (0 pt) Altered Elimination No (0 pt) Score/Fall Risk Level 0 - 2 = Low Risk Oriented to surroundings, Maintained a safe environment, Educated pt \T\ family on fall prevention, incl call for assistance when getting out of bed, Assessed \T\ reinforced patient's understanding of fall precautions. Abuse screen: Denies threats or abuse. Denies injuries from another. Nutritional screening: No deficits noted. Tuberculosis screening: No symptoms or risk factors identified. Assessment: 00:23 General: Appears in no apparent distress. comfortable, Behavior is calm, cooperative, km8 appropriate for age. Pain: Complains of pain in head Pain currently is 7 out of 10 on a pain scale. Quality of pain is described as aching. Neuro: Level of Consciousness is awake, alert, obeys commands, Oriented to person, place, time, situation, Reports headache. Cardiovascular: Patient's skin is warm and dry. Rhythm is sinus rhythm. Respiratory: Airway is patent Respiratory effort is even, unlabored, Respiratory pattern is regular, symmetrical, Breath sounds are clear. GI: No signs and/or symptoms were reported involving the gastrointestinal system. : No signs and/or symptoms were reported regarding the genitourinary system. EENT: No signs and/or symptoms were reported regarding the EENT system. Derm: No signs and/or symptoms reported regarding the dermatologic system. Skin is intact, is healthy with good turgor, Skin is dry, Skin is pink, warm \T\ dry. normal, Skin temperature is warm. Musculoskeletal: No signs and/or symptoms reported regarding the musculoskeletal system. Range of motion: intact in all extremities. 01:30 Reassessment: Patient appears in no apparent distress at this time. Patient and/or km8 family updated on plan of care and expected duration. Pain level reassessed. Patient is alert, oriented x 3, equal unlabored respirations, skin warm/dry/pink. Patient states symptoms have improved. 03:11 Reassessment: Patient appears in no apparent distress at this time. Patient and/or km8 family updated on plan of care and expected duration. Pain level reassessed. Patient is alert, oriented x 3, equal unlabored respirations, skin warm/dry/pink. Patient states symptoms have improved. Vital Signs: 01/13 23:35 BP 129 / 87; Pulse 110; Resp 16; Temp 98.1(O); Pulse Ox 98% ; Weight 70.31 kg; Height 5 kd3 ft. 3 in. ; Pain 10; 01/14 00:23 BP 112 / 75; Pulse 86; Resp 16; Pulse Ox 96% on R/A; km8 01:00 BP 111 / 73; Pulse 81; Resp 16; Pulse Ox 99% on R/A; km8 03:11 BP 91 / 56; Pulse 87; Resp 16; Pulse Ox 98% on R/A; km8 01/13 23:35 Body Mass Index 27.46 (70.31 kg, 160.02 cm) kd3 01/13 23:35 Pain Scale: Adult kd3 [place] Coma Score: 00:23 Eye Response: spontaneous(4). Motor Response: obeys commands(6). Verbal Response: km8 oriented(5). Total: 15. 03:25 Eye Response: spontaneous(4). Motor Response: obeys commands(6). Verbal Response: sp4 oriented(5). Total: 15. ED Course: 01/13 23:30 Patient arrived in ED. rg4 23:35 Anil Madison MD is Attending Physician. sp4 23:37 Triage completed. kd3 23:37 Arm band placed on right wrist. kd3 23:55 Inserted saline lock: 20 gauge in right antecubital area, using aseptic technique. kd3 Blood collected. 01/14 00:07 Urine Drug Screen Sent. kd3 00:07 Urinalysis W/Microscopic Sent. kd3 00:07 Test, Urine Sent. kd3 00:07 Basic Metabolic Panel Sent. kd3 00:07 CBC with Diff Sent. kd3 00:07 LFT's Sent. kd3 00:07 Magnesium Sent. kd3 00:07 NT PRO-BNP Sent. kd3 00:07 PT-INR Sent. kd3 00:07 Troponin HS Sent. kd3 00:08 Initial lab(s) drawn, by il, sent to lab. Urine collected: clean catch specimen, clear, kd3 EKG done, by ED staff, reviewed by Anil Madison MD. 00:17 Nilda London, RN is Primary Nurse. km8 00:20 XRAY Chest (1 view) In Process Unspecified. EDMS 00:23 Patient has correct armband on for positive identification. Placed in gown. Bed in low km8 position. Call light in reach. Side rails up X 1. clinical research monitor on. Pulse ox on. NIBP on. Door closed. Noise minimized. Lights dimmed. Warm blanket given. 00:23 Patient maintains SpO2 saturation greater than 95% on room air. km8 02:54 Jori Tejeda MD is Referral Physician. sp4 03:12 Provided Education on: d/c teaching. km8 03:12 No provider procedures requiring assistance completed. IV discontinued, intact, km8 bleeding controlled, No redness/swelling at site. Pressure dressing applied. Administered Medications: 00:07 Drug: NS 0.9% IV 1000 ml IV at 1 bolus Per protocol; 1000 mL bolus Route: IV; Rate: 1 kd3 bolus; Site: right antecubital; 03:13 Follow up: IV Status: Completed infusion; IV Intake: 1000ml km8 00:23 Drug: NS 0.9% IV 1000 ml IV at 125 ml/hr continuous Route: IV; Rate: 125 ml/hr; Site: km8 right antecubital; 03:13 Follow up: IV Status: Completed infusion; IV Intake: 200ml km8 01:25 Drug: Ketorolac IVP 30 mg IVP once Route: IVP; Site: right antecubital; km8 02:30 Follow up: Response: No adverse reaction; Pain is decreased km8 01:25 Drug: metoCLOPramide IVP 10 mg IVP once; over 1 to 2 minutes Route: IVP; Site: right 8 antecubital; 02:30 Follow up: Response: No adverse reaction; Pain is decreased km8 01:25 Drug: diphenhydrAMINE IVP 25 mg IVP once Route: IVP; Site: right antecubital; km8 02:30 Follow up: Response: No adverse reaction; Pain is decreased km8 Medication: 03:12 VIS not applicable for this client. km8 Intake: 03:13 IV: 1000ml; Total: 1000ml. km8 03:13 IV: 200ml; Total: 1200ml. km8 Outcome: 02:55 Discharge ordered by . sp4 03:12 Discharged to home ambulatory, km8 03:12 Condition: good 03:12 Discharge instructions given to patient, Instructed on discharge instructions, follow up and referral plans. Demonstrated understanding of instructions, follow-up care, 03:13 Patient left the ED. km8 Signatures: Dispatcher [employer] Alejandrina Church rg4 Lucy Castro RN RN kd3 Anil Madison MD MD sp4 Nilda London RN RN km8 Corrections: (The following items were deleted from the chart) 00:23 00:23 NS 0.9% IV 1000 ml IV at 125 ml/hr in left antecubital 8 8 01:25 01:24 Ketorolac IVP 30 mg IVP in left antecubital 8 8 01:25 01:25 metoCLOPramide IVP 10 mg IVP in left antecubital 8 8
[2024-01-15 04:20] VITALS: BP 91/56; TEMP 98.1; O2SAT 98
--- NOTE | 2024-01-15 17:18 | RAD REPORT ---
EXAM DESCRIPTION: RAD - Chest Single View - 01/15/2024 12:18 am CLINICAL HISTORY: The patient is 38 years old and is Female; CHEST PAIN TECHNIQUE: Frontal view of the chest. COMPARISON: No relevant prior studies available. FINDINGS: Lungs: Unremarkable. No consolidation. Pleural space: Unremarkable. No pneumothorax. Heart: Unremarkable. Mediastinum: Unremarkable. Normal mediastinal contour. Bones/joints: No acute findings. IMPRESSION: No acute findings in the chest. Electronically signed by: Sg Still MD 01/15/2024 12:25 AM AUTOMATION MANAGER Due to temporary technical issues with the PACS/Fluency reporting system, reports are being signed by the in house radiologists without review as a courtesy to insure prompt reporting. The interpreting radiologist is fully responsible for the content of the report.
== END ==
LOC: ER 23:26
DX: R00.0 Tachycardia, unspecified (principal); R06.02 Shortness of breath; F17.210 Nicotine dependence, cigarettes, uncomplicated; Z88.1 Allergy status to other antibiotic agents
CPT/HCPCS: 36415; 71045; J7030; 96361; 96374; 96375; 99285

== ENCOUNTER 2025-01-06 16:20 | Emergency (ER) | payer OTHER ==
--- OUTSIDE RECORDS SUMMARY | 2025-01-06 16:23 | XMS REPORT | Continuity of Care Document ---
Author Name Unknown Address [address] [place] [address] [facility] thconnect Address [address] [place] [address] Care Team Providers Care Manager Payer Name Role Phone Miller Cota Primary Care Physician Miller Cota Attending Clinician Unavailable [email or web address] Attending Clinician Unavaila ble Radiology Attending Clinician Unavailable RADIOLOGY Attending Clinician Unavailable Doctor Unassigned, [place] Attending Clinician U navailable Miller Cota Admitting Clinician Unavailable [email or web address] Admitting Clinician Unavaila ble Payers Payer Name Policy Type Policy Number Effective Date Expirati on Date Source Allergies, Adverse Reactions, Alerts Allergy Name Allergy Type Status Severity Reaction(s) Onset Date Inactive Date Treating Clinician Comments Source NO KNOWN ALLERGIE S Drug Class Active [facility] Social History Social Habit Start Date Stop Date Quantity Comments Source History of tobacco use Smokes tobacco daily [facility] Exposure to SARS-CoV-2 (event) 2023-01-11 00:00:00 2023-01-21 13:38:00 Not sure [facility] Sex Assigned At 1985 00:00[birth year]00 1985 00:00:00 [facility] Smoking Status Start Date Stop Date Source Smokes tobacco daily [facility] Medications Ordered Medication Name Filled Medication Name Start Date Stop Date Current Medication? Ordering Clinician Indication Dosage Frequency Signature (SIG) Comments Components Source ALPRAZolam (XANAX) 1 mg tablet 12-31 13:36: 08 Yes 1mg Take 1 mg by mouth 2 (two) times daily. [facility] dextroamphe tamine-amph etamine (ADDERALL) 30 mg tablet 12-31 13:36: 08 Yes 30mg Take 30 mg by mouth 2 (two) times daily. [facility] amitriptyli ne 75 mg tablet 12-31 13:36: 08 Yes 75mg Take 75 mg by mouth at bedtime. [facility] pregabalin (LYRICA) 75 mg capsule 12-31 13:36: 08 Yes 75mg Take 75 mg by mouth 2 (two) times daily. [facility] mometasone 50 mcg/actuati on nasal spray 12-16 00:00: 00 Yes 2{spray } Use 2 Sprays in each nostril 2 (two) times daily. [facility] Procedures Procedure Date / Time Performed Performing Clinicia n Source ASSIGNMENT OF BENEFITS 2023-01-28 14:44:35 Docto r Unassigned, [place] [facility] Encounters Start Date/Time End Date/Time Encounter Type Admission Type Attending Clinicians Care Facility Care Department Encounter ID Source 2024-01-19 12:00:00 2024-01-19 12:00:00 Outpatient Miller Campos [facility] [id number] [address] [facility] 2023-09-05 00:00:00 2023-09-05 00:00:00 Outpatient [email or web address] [facility] [id number] [facility] 2023-01-28 09:48:50 2023-01-28 23:59:00 Hospital Encounter Radiology [facility] [id number] [facility] 2023-01-28 09:48:34 2023-01-28 23:59:00 Hospital Encounter Radiology [facility] [id number] [facility] 2023-01-28 09:48:34 2023-01-28 23:59:00 Outpatient R RADIOLOGY [facility] [id number] [facility] 2023-01-28 00:00:00 2023-01-28 00:00:00 Orders Only Doctor Unassigned, [place] [facility] [id number] [facility]
[2025-01-06 16:46] LABS: Absolute Basophils 0.1 K/uL (0-0.5); Absolute Eosinophils 0.1 K/uL (0-0.5); Absolute Lymphocytes (CBC) 2.3 K/uL (0.7-4.9); Absolute Monocytes 0.6 K/uL (0.1-1.3); Absolute Neutrophil 5.7 K/uL (1.8-8.0); Basophils % 0.8 % (0-1.3); Eosinophils % 0.9 % (0-4.4); Hematocrit 38.7 % (36.0-45.0); Hemoglobin 13.6 g/dL (12.0-15.0); Lymphocytes % 26.3 % (15.3-44.8); MCH 30.5 pg (27.0-35.0); MPV 9.7 fL (7.6-11.3); Monocytes % 7.2 % (3.3-12.3); Neutrophils % 64.8 % (41.7-73.7); Nucleated Red Blood Cells % 0.1 % (0-0); Platelets 217 thou/uL (152-406); RBC Red Blood Cell Count 4.45 M/uL (3.86-4.86); Red Cell Distribution Width 13.3 % (12.1-15.2)
[2025-01-06 17:06] LABS: Anion Gap 5.9 mEq/L (5.0-15.0); BUN Blood Urea Nitrogen 12 mg/dL (7-18); Bicarbonate 26 mEq/L (21-32); Glomerular Filtration Rate 109 ml/min (=/>90); Glucose Level 92 mg/dL (74-106); NT PRO-BNP 30 pg/mL (<125); Potassium 3.9 mEq/L (3.5-5.1); Sodium Level 136 mEq/L (136-145)
[2025-01-06 17:09] LABS: Troponin High Sensitivity < 3.0 pg/mL (<58.9)
--- NOTE | 2025-01-06 17:15 | RAD REPORT ---
EXAM: Chest Single View HISTORY: 39 years Female DYSPNEA COMPARISON: 01/15/2024 FINDINGS: LUNGS/PLEURA: The lungs are clear. No pleural effusions or pneumothorax. No pulmonary edema. CARDIAC/MEDIASTINUM: The cardiac silhouette is within normal limits. UPPER ABDOMEN: No significant abnormality. BONES: No acute abnormality. LINES/TUBES/OTHER: N/A IMPRESSION: No evidence of acute cardiopulmonary disease.
--- NOTE | 2025-01-06 17:21 | ER ---
Nurse's Notes [facility] Name: Reina Clements Age: 39 yrs Sex: Female : 1985 Arrival Date: 01/06/2025 Time: 16:20 Bed 15 Private MD: Diagnosis: Palpitations Presentation: 01/06 16:37 Chief complaint: Patient states: episodic palpitations with SOB that began today. Pt ss reports this is not the first time she has felt this. Coronavirus screen: Client denies travel out of the [place] in the last 14 days. Ebola Screen: Patient denies exposure to infectious person. Patient denies travel to an Ebola-affected area in the 21 days before illness onset. Initial Sepsis Screen: Does the patient meet any 2 criteria? No. Patient's initial sepsis screen is negative. Does the patient have a suspected source of infection? No. Patient's initial sepsis screen is negative. Risk Assessment: Do you want to hurt yourself or someone else? Patient reports no desire to harm self or others. Onset of symptoms was January 06, 2025. 16:37 Method Of Arrival: Ambulatory ss 16:37 Acuity: CHAPIN 3 ss Triage Assessment: 16:45 Respiratory: Reports shortness of breath Onset: The symptoms/episode began/occurred cm10 gradually, the patient has mild shortness of breath. 16:45 General: Appears in no apparent distress. comfortable. 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 - Infectious Disease History:: Denies. - Social history:: Smoking status: Patient reports the use of cigarette tobacco products, smokes one pack cigarettes per day. Screenin:40 [facility] ED Fall Risk Assessment (Adult) History of falling in the last 3 months, cm10 including since admission No falls in past 3 months (0 pts) Confusion or Disorientation No (0 pts) Intoxicated or Sedated No (0 pts) Impaired Gait No (0 pts) Mobility Assist Device Used No (0 pt) Altered Elimination No (0 pt) Score/Fall Risk Level 0 - 2 = Low Risk Oriented to surroundings, Maintained a safe environment, Hourly rounding (assess needs \T\ fall precautionary measures) done. 16:40 Abuse screen: Denies threats or abuse. Denies injuries from another. Nutritional cm10 screening: No deficits noted. Tuberculosis screening: No symptoms or risk factors identified. Assessment: 16:40 General: Appears in no apparent distress. comfortable, Behavior is calm, cooperative, cm10 appropriate for age. Pain: Denies pain. Neuro: No deficits noted. Level of Consciousness is awake, alert, obeys commands, Oriented to person, place, time, situation, Appropriate for age. Cardiovascular: Heart tones present Patient's skin is warm and dry. Rhythm is regular. Respiratory: No deficits noted. Airway is patent Respiratory effort is even, unlabored, Respiratory pattern is regular, symmetrical, Breath sounds are clear bilaterally. Derm: No deficits noted. Skin is healthy with good turgor, Skin is pink, warm \T\ dry. Musculoskeletal: No deficits noted. Range of motion: intact in all extremities. 17:49 Reassessment: Patient appears in no apparent distress at this time. Patient and/or cm10 family updated on plan of care and expected duration. Pain level reassessed. Patient is alert, oriented x 3, equal unlabored respirations, skin warm/dry/pink. Vital Signs: 16:37 BP 127 / 83; Pulse 73; Resp 14; Pulse Ox 100% on R/A; Weight 63.5 kg; Height 5 ft. 3 ss in. ; Pain 0/10; 16:39 Temp 98.1(O); cm10 16:45 BP 116 / 79; Pulse 76; Resp 17; Pulse Ox 100% on R/A; cm10 17:14 BP 101 / 72; Pulse 60; Resp 20; Pulse Ox 100% on R/A; cm10 17:30 BP 105 / 74; Pulse 65; Resp 17; Pulse Ox 100% ; cm10 16:37 Body Mass Index 24.80 (63.50 kg, 160.02 cm) ss 16:37 Pain Scale: Adult ss ED Course: 16:23 Patient arrived in ED. ts1 16:32 Ab Valenzuela MD is Attending Physician. ec2 16:33 Coral Stapleton, BRIDGETT is Primary Nurse. cm10 16:39 Initial lab(s) drawn, by co, sent to lab. EKG done, by ED staff, reviewed by Ab Valenzuela MD. Inserted saline lock: 20 gauge in right antecubital area, using aseptic technique. Blood collected. Flushed with 10 mL NS. 16:40 Triage completed. ss 16:40 Arm band placed on right wrist. ss 16:45 Patient has correct armband on for positive identification. Placed in gown. Bed in low cm10 position. Call light in reach. Side rails up X2. Client placed on continuous cardiac and pulse oximetry monitoring. NIBP monitoring applied. 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 17:04 XRAY Chest (1 view) In Process Unspecified. EDMS 17:50 No provider procedures requiring assistance completed. IV discontinued, intact, cm10 bleeding controlled, No redness/swelling at site. Pressure dressing applied. 17:50 Provided Education on: Follow-up instruction. cm10 Administered Medications: No medications were administered Medication: 17:13 VIS not applicable for this client. cm10 Outcome: 17:20 Discharge ordered by . ec2 17:50 Discharged to home ambulatory, cm10 17:50 Condition: good 17:50 Discharge instructions given to patient, Instructed on discharge instructions, follow up and referral plans. Demonstrated understanding of instructions, follow-up care, 17:51 Patient left the ED. cm10 Signatures: Dispatcher [employer] EDDilia Norton RN RN ss Simpson, Tanya, PAS PAS ts1 Coral Stapleton RN RN cm10 Ab Valenzuela MD MD ec2
--- NOTE | 2025-01-06 17:21 | EDPHYS ---
Physician Documentation [facility] Name: Reina Clements Age: 39 yrs Sex: Female : 1985 Arrival Date: 01/06/2025 Time: 16:20 Bed 15 Private MD: ED Physician Ab Valenzuela HPI: 01/06 16:48 This 39 yrs old Female presents to ER via Ambulatory with complaints of ec2 Palpitations, Shortness Of Breath. 16:48 Patient arrives today for evaluation of palpitations. Patient reports she experienced ec2 palpitations, subsequently resolved after short period of time. No nausea or vomiting, no diarrhea, no chest pain or difficulty breathing at this time. Patient reports history of similar x 2 with no previous etiology identified.. 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 - Infectious Disease History:: Denies. - Social history:: Smoking status: Patient reports the use of cigarette tobacco products, smokes one pack cigarettes per day. ROS: 16:48 Constitutional: as per hpi ec2 Exam: 16:48 Constitutional: GEN: NAD Head: atraumatic Eyes: EOMI Ears: External ears are ec2 normal. CV: regular rate LUNGS: no respiratory distress ABD: non-distended SKIN: no evidence of rashes MSK: no evidence of trauma Vital Signs: 16:37 BP 127 / 83; Pulse 73; Resp 14; Pulse Ox 100% on R/A; Weight 63.5 kg; Height 5 ft. 3 ss in. ; Pain 0/10; 16:39 Temp 98.1(O); cm10 16:45 BP 116 / 79; Pulse 76; Resp 17; Pulse Ox 100% on R/A; cm10 17:14 BP 101 / 72; Pulse 60; Resp 20; Pulse Ox 100% on R/A; cm10 17:30 BP 105 / 74; Pulse 65; Resp 17; Pulse Ox 100% ; cm10 16:37 Body Mass Index 24.80 (63.50 kg, 160.02 cm) ss 16:37 Pain Scale: Adult ss MDM: 16:32 Medical Screening Exam initiated ec2 16:48 Data reviewed: vital signs, nurses notes. ED course: Patient arrives today for ec2 palpitations. Examination is revealing for nontoxic, dynamically stable individuals otherwise in no acute distress. EKG obtained, independently reviewed and interpreted by me, shows Normal sinus rhythm, rate of 79, no acute ST segment elevation, intervals are nonactionable. Will obtain lab work as well. DDx considered include processes such as electrolyte disturbances, arrhythmia, anemia, ACS.. 17:19 ED course: Metabolic profile, CBC, BNP as well as troponin are nonactionable, chest ec2 x-ray shows no acute intrathoracic process. On reassessment patient without recurrence of symptoms. Will discharge home, have the patient follow-up PCP and cardiology. Return precautions given.. 01/06 16:33 Order name: Basic Metabolic Panel; Complete Time: 17:19 ec2 01/06 16:33 Order name: CBC with Diff; Complete Time: 17:19 ec2 01/06 16:33 Order name: NT PRO-BNP; Complete Time: 17:19 ec2 01/06 16:33 Order name: Troponin HS; Complete Time: 17:19 ec2 01/06 16:33 Order name: XRAY Chest (1 view); Complete Time: 17:19 ec2 01/06 16:33 Order name: EKG; Complete Time: 16:33 ec2 01/06 16:33 Order name: Cardiac monitoring; Complete Time: 16:39 ec2 01/06 16:33 Order name: EKG - Nurse/Tech; Complete Time: 16:39 ec2 01/06 16:33 Order name: IV Saline Lock; Complete Time: 16:38 ec2 01/06 16:33 Order name: Labs collected and sent; Complete Time: 16:38 ec2 01/06 16:33 Order name: O2 Per Protocol; Complete Time: 16:38 ec2 01/06 16:33 Order name: O2 Sat Monitoring; Complete Time: 16:39 ec2 Administered Medications: No medications were administered Disposition Summary: 01/06/25 17:20 Discharge Ordered Notes: Location: Home ec2 Condition: Stable ec2 Diagnosis - Palpitations ec2 Followup: ec2 - With: Private Physician - When: - Reason: Re-evaluation by your physician Discharge Instructions: - Discharge Summary Sheet ec2 - Palpitations ec2 Forms: - Medication Reconciliation Form ec2 - Antibiotic Education ec2 - Prescription Opioid Use ec2 - Patient Portal Instructions ec2 - Leadership Thank You Letter ec2 Signatures: Dispatcher [employer] EDMS Dilia Bella, BRIDGETT RN ss Coral Stapleton RN RN cm10 Ab Valenzuela MD MD ec2 Corrections: (The following items were deleted from the chart) 16:33 16:33 BASIC METABOLIC PANEL+C.LAB.BRZ ordered. EDMS EDMS 16:33 16:33 CBC+H.LAB.BRZ ordered. EDMS EDMS 16:33 16:33 PROBNP+C.LAB.BRZ ordered. EDMS EDMS 16:33 16:33 Troponin High Sensitivity+C.LAB.BRZ ordered. EDMS EDMS 16:33 16:33 Chest Single View+RAD.RAD.BRZ ordered. EDMS EDMS
[2025-01-06 18:08] VITALS: O2SAT 100
[2025-01-06 18:10] VITALS: TEMP 98.1
[2025-01-06 18:15] VITALS: BP 105/74
--- NOTE | 2025-01-08 12:08 | EKG ---
Test Date: 2025-01-06 Test Time: 16:39:56 Skein Drier: ACOSTA MEASUREMENT RESULTS: Intervals: Rate: 79 OR: 146 QRSD: 72 QT: 352 QTc: 403 [place]: P: 58 OR: 146 QRS: 52 T: 50 INTERPRETIVE STATEMENTS: Normal sinus rhythm Possible Anterior infarct, age undetermined Abnormal ECG Compared to ECG 01/14/2024 23:37:15 Myocardial infarct finding now present Sinus arrhythmia no longer present Atrial abnormality no longer present Electronically Signed On 01-08-25 12:04:21 NATIONAL SERVICE OFFICER by Francisco Reed
== END 2025-01-06 17:51 | disposition home or self-care (01) ==
LOC: ER 16:20
DX: R00.2 Palpitations (principal); R06.02 Shortness of breath; F17.210 Nicotine dependence, cigarettes, uncomplicated
CPT/HCPCS: 36415; 71045; 80048; 83880; 84484; 85025; 93005; 99284

== ENCOUNTER 2025-02-11 21:14 | Emergency (ER) | payer OTHER ==
--- OUTSIDE RECORDS SUMMARY | 2025-02-11 21:18 | XMS REPORT | Continuity of Care Document ---
Author Name Unknown Address [address] [facility] [address] [place] [address] Organization [facility] Address [address] [facility] [address] [place] [address] Care Team Providers Care Boarder Hand Name Role Phone Miller Cota Primary Care Physician NIURKA MAK Attending Clinician Unavailab REMA Boyd MEDICAL Attending Beatris mills Unavailable Miller Cota Attending Clinician Unavailable [email or web address] Attending Clinician Unavaila ble Radiology Attending Clinician Unavailable RADIOLOGY Attending Clinician Unavailable Doctor Unassigned, [place] Attending Clinician U navailable Miller Cota Admitting Clinician Unavailable [email or web address] Admitting Clinician Unavaila ble Payers Payer Name Policy Type Policy Number Effective Date Expirati on Date Source [employer] 2 [id number] 2025 00:00:00 Allergies, Adverse Reactions, Alerts Allergy Name Allergy Type Status Severity Reaction(s) Onset Date Inactive Date Treating Clinician Comments Source NO KNOWN ALLERGIE S Drug Class Active Univers [facility] Social History Social Habit Start Date Stop Date Quantity Comments Source History of tobacco use Smokes tobacco daily [facility] Exposure to SARS-CoV-2 (event) 2023-01-11 00:00:00 2023-01-21 13:38:00 Not sure [facility] Sex Assigned At 1985 00:00:00 1985 00:00:00 [facility] Smoking Status Start Date Stop Date Source Smokes tobacco daily [facility] Medications Ordered Medication Name Filled Medication Name Start Date Stop Date Current Medication? Ordering Clinician Indication Dosage Frequency Signature (SIG) Comments Components Source ALPRAZolam (XANAX) 1 mg tablet 12-31 13:36: 08 Yes 1mg Take 1 mg by mouth 2 (two) times daily. [facility] dextroamphe tamine-amph etamine (ADDERALL) 30 mg tablet 12-31 13:36: 08 Yes 30mg Take 30 mg by mouth 2 (two) times daily. [facility] amitriptyli ne 75 mg tablet 12-31 13:36: 08 Yes 75mg Take 75 mg by mouth at bedtime. [facility] pregabalin (LYRICA) 75 mg capsule 12-31 13:36: 08 Yes 75mg Take 75 mg by mouth 2 (two) times daily. [facility] mometasone 50 mcg/actuati on nasal spray 12-16 00:00: 00 Yes 2{spray } Use 2 Sprays in each nostril 2 (two) times daily. [facility] Procedures Procedure Date / Time Performed Performing Clinicia n Source ASSIGNMENT OF BENEFITS 2023-01-28 14:44:35 Docto r Unassigned, [place] [facility] Encounters Start Date/Time End Date/Time Encounter Type Admission Type Attending Clinicians Care Facility Care Department Encounter ID Source 2025-02-12 15:30:00 2025-02-12 15:30:00 Outpatient NIURKA MAK [id number] Rema Rodriguez 2025-02-08 00:00:00 2025-02-08 00:00:00 Outpatient REMA ALEX [id number] Rema Rodriguez 2024-01-19 12:00:00 2024-01-19 12:00:00 Outpatient Miller Campos [facility] [id number] 2023-09-05 00:00:00 2023-09-05 00:00:00 Outpatient [email or web address] diyala_S PRIV [facility] [id number] [facility] 2023-01-28 09:48:50 2023-01-28 23:59:00 Hospital Encounter Radiology [facility] [id number] [facility] 2023-01-28 09:48:34 2023-01-28 23:59:00 Hospital Encounter Radiology [facility] [id number] [facility] 2023-01-28 09:48:34 2023-01-28 23:59:00 Outpatient R RADIOLOGY [facility] [id number] [facility] 2023-01-28 00:00:00 2023-01-28 00:00:00 Orders Only Doctor Unassigned, [place] [facility] [id number] [facility]
[2025-02-11] MEDS ORDERED: NA CHLORIDE 0.9% 1,000 ML ONE (21:35)
[2025-02-11] MEDS ORDERED: ACETAMINOPHEN 500 MG TAB ONE (21:43)
[2025-02-11 22:15] LABS: PT Prothrombin Time 11.9 SECONDS (10-13.0); Protime INR 1.05
[2025-02-11 22:16] LABS: Absolute Basophils 0.1 K/uL (0-0.5); Absolute Lymphocytes (CBC) 1.8 K/uL (0.7-4.9); Absolute Monocytes 0.4 K/uL (0.1-1.3); Absolute Neutrophil 5.5 K/uL (1.8-8.0); Basophils % 0.8 % (0-1.3); Eosinophils % 0.5 % (0-4.4); Hematocrit 39.5 % (36.0-45.0); Hemoglobin 13.7 g/dL (12.0-15.0); Lymphocytes % 23.2 % (15.3-44.8); MCHC 34.8 g/dL (32.0-36.0); MCV 86.5 fL (80-100); MPV 9.9 fL (7.6-11.3); Monocytes % 5.3 % (3.3-12.3); Neutrophils % 70.2 % (41.7-73.7); Nucleated Red Blood Cells % 0.1 % (0-0); Platelets 207 thou/uL (152-406); RBC Red Blood Cell Count 4.57 M/uL (3.86-4.86)
--- NOTE | 2025-02-11 22:22 | RAD REPORT ---
EXAM: CT Head Brain Wo Cont HISTORY: DIZZINESS COMPARISON: None TECHNIQUE: Multiple contiguous axial images were obtained for a CT of the brain without contrast. Sag ittal and coronal reformats were performed. One or more of the following dose reduction techniques were used: Automated exposure control, adjus tment of the mA and kV according to patient size, and iterative reconstruction. Unless otherwise specified, incidental findings do not require dedicated imaging follow-up. FINDINGS: No evidence of hydrocephalus, intracranial hemorrhage, or extra-axial fluid collection. Linear hyperd ensity along the anterior denilson is favored to relate to beam hardening artifact. The brain is normal in morphology. The calvarium is intact. Opacification of the mastoid air cells, suggesting sequelae of chronic sinus itis mastoid air cells are essentially clear. IMPRESSION: No evidence of acute intracranial abnormality.
[2025-02-11 22:32] LABS: Specific Gravity 1.009 (1.005-1.030); Sqamous Epithelial <5 /HPF (None Seen); Urine Bacteria None Seen /HPF (<20); Urine Bilirubin NEGATIVE (Negative); Urine Blood Negative (Negative); Urine Clarity Clear (Clear); Urine Color Colorless (Yellow); Urine Culture Reflex Order NOT NEEDED; Urine Glucose NEGATIVE (Negative); Urine Ketones NEGATIVE (Negative); Urine Microscopic Reflex YN ORDER UMIC; Urine Nitrite NEGATIVE (Negative); Urine Protein NEGATIVE (Negative); Urine RBC <5 /HPF (None Seen); Urine Urobilinogen Normal (Normal); Urine WBC <5 /HPF (<5)
[2025-02-11 22:37] LABS: Specific Gravity 1.009 (1.005-1.030)
[2025-02-11 22:41] LABS: Barbiturates NEGATIVE (NEGATIVE); Benzodiazepines NEGATIVE (NEGATIVE); Cocaine NEGATIVE (NEGATIVE); METHAMPHETAM NEGATIVE (NEGATIVE); Methadone NEGATIVE (NEGATIVE); Opiates NEGATIVE (NEGATIVE); Phencyclidine NEGATIVE (NEGATIVE); THC Cannibis POSITIVE (NEGATIVE)
[2025-02-11 22:41] LABS: Albumin 3.8 g/dL (3.4-5.0); Albumin/Globulin Ratio 1.1 (1.1-1.8); Anion Gap 8.4 mEq/L (5.0-15.0); Bilirubin Direct 0.2 mg/dL (0-0.2); Bilirubin Indirect, Calculated 0.5 mg/dL (0.2-0.8); Bilirubin Total 0.7 mg/dL (0.2-1.0); Globulin 3.4 g/dL (2.3-3.5); Potassium 3.4 mEq/L (3.5-5.1); Protein, Total 7.2 g/dL (6.4-8.2); Thyroid Stimulating Hormone 1.55 uIU/mL (0.358-3.740); Troponin High Sensitivity 4.1 pg/mL (<58.9)
[2025-02-11] MEDS ORDERED: POTASSIUM 25 MEQ EFFERV TAB ONE (23:34)
--- NOTE | 2025-02-11 23:43 | EDPHYS ---
Physician Documentation [facility] Name: Reina Clements Age: 39 yrs Sex: Female : 1985 Arrival Date: 02/11/2025 Time: 21:14 Bed 7 Private MD: JAXON Physician Ruben Kaur HPI: 02/11 23:37 This 39 yrs old Female presents to ER via Wheelchair with complaints of luz Irregular Pulse, Dizziness, Blurred Vision. 23:37 The patient presents with dizziness. Onset: The symptoms/episode began/occurred just luz prior to arrival. Context: occurred at home, occurred while the patient was walking. Modifying factors: The symptoms are alleviated by nothing, the symptoms are aggravated by nothing. Associated signs and symptoms: The patient has no apparent associated signs or symptoms. Severity of symptoms: At their worst the symptoms were mild moderate in the emergency department the symptoms are unchanged. Patient's baseline: Neuro: alert and fully oriented. The patient has experienced similar episodes in the past, several times. 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 - Infectious Disease History:: Denies. - Social history:: Smoking status: Patient reports the use of cigarette tobacco products, smokes one pack cigarettes per day. - Family history:: not pertinent. ROS: 23:37 Constitutional: Negative for fever, chills, and weight loss, Eyes: Negative for injury, luz pain, redness, and discharge, ENT: Negative for injury, pain, and discharge, Neck: Negative for injury, pain, and swelling, Respiratory: Negative for shortness of breath, cough, wheezing, and pleuritic chest pain, Abdomen/GI: Negative for abdominal pain, nausea, vomiting, diarrhea, and constipation, Back: Negative for injury and pain, : Negative for injury, bleeding, discharge, and swelling, MS/Extremity: Negative for injury and deformity, Skin: Negative for injury, rash, and discoloration, Neuro: Negative for headache, weakness, numbness, tingling, and seizure, Psych: Negative for depression, anxiety, suicide ideation, homicidal ideation, and hallucinations, Allergy/Immunology: Negative for hives, rash, and allergies, Endocrine: Negative for neck swelling, polydipsia, polyuria, polyphagia, and marked weight changes, Hematologic/Lymphatic: Negative for swollen nodes, abnormal bleeding, and unusual bruising, 23:37 Cardiovascular: Positive for chest pain, Exam: 23:37 Constitutional: This is a well developed, well nourished patient who is awake, alert, luz and in no acute distress. Head/Face: Normocephalic, atraumatic. Eyes: Pupils equal round and reactive to light, extra-ocular motions intact. Lids and lashes normal. Conjunctiva and sclera are non-icteric and not injected. Cornea within normal limits. Periorbital areas with no swelling, redness, or edema. ENT: Nares patent. No nasal discharge, no septal abnormalities noted. Tympanic membranes are normal and external auditory canals are clear. Oropharynx with no redness, swelling, or masses, exudates, or evidence of obstruction, uvula midline. Mucous membranes moist. Neck: Trachea midline, no thyromegaly or masses palpated, and no cervical lymphadenopathy. Supple, full range of motion without nuchal rigidity, or vertebral point tenderness. No Meningismus. Chest/axilla: Normal chest wall appearance and motion. Nontender with no deformity. No lesions are appreciated. Cardiovascular: Regular rate and rhythm with a normal S1 and S2. No gallops, murmurs, or rubs. Normal PMI, no JVD. No pulse deficits. Respiratory: Lungs have equal breath sounds bilaterally, clear to auscultation and percussion. No rales, rhonchi or wheezes noted. No increased work of breathing, no retractions or nasal flaring. Abdomen/GI: Soft, non-tender, with normal bowel sounds. No distension or tympany. No guarding or rebound. No evidence of tenderness throughout. Back: No spinal tenderness. No costovertebral tenderness. Full range of motion. Skin: Warm, dry with normal turgor. Normal color with no rashes, no lesions, and no evidence of cellulitis. MS/ Extremity: Pulses equal, no cyanosis. Neurovascular intact. Full, normal range of motion., bilateral aka Neuro: Awake and alert, GCS 15, oriented to person, place, time, and situation. Cranial nerves II-XII grossly intact. Motor strength 5/5 in all extremities. Sensory grossly intact. Cerebellar exam normal. Normal gait. Psych: Awake, alert, with orientation to person, place and time. Behavior, mood, and affect are within normal limits. 23:37 Musculoskeletal/extremity: DVT Exam: No signs of deep vein thrombosis. no pain, no swelling, no tenderness, negative Homans' sign noted on exam, no appreciated bluish discoloration, no erythema, no increased warmth, Vital Signs: 21:24 BP 146 / 96; Pulse 95; Resp 20; Temp 97.6(O); Pulse Ox 100% on R/A; Weight 65.77 kg jb4 (R); Height 5 ft. 3 in. (R); Pain 7/10; 22:15 BP 109 / 78; Pulse 76; Resp 22; Pulse Ox 99% ; vc1 23:00 BP 102 / 69; Pulse 67; Resp 21; Pulse Ox 100% ; vc1 23:51 BP 106 / 68; Pulse 58; Resp 18; Pulse Ox 100% ; al5 21:24 Body Mass Index 25.69 (65.77 kg, 160.02 cm) jb4 21:24 Pain Scale: Adult jb4 MDM: 21:22 Medical Screening Exam initiated luz 23:43 Differential diagnosis: cardiac arrhythmia, generalized weakness, hypovolemia, luz idiopathic dizziness, near-syncope, , sepsis, vertigo. Data reviewed: vital signs, nurses notes, lab test result(s), EKG, radiologic studies, plain films. Consideration of Admission/Observation Escalation of care including admission/observation considered. I considered the following discharge prescriptions or medication management in the emergency department Medications were administered in the Emergency Department. See MAR. Independent interpretation of the following test(s) in the Emergency Department EKG: See my EKG interpretation above. Historians other than the Patient: Spouse/Significant Other: spouse well informed. 02/11 21:28 Order name: Basic Metabolic Panel; Complete Time: 23:[address] [facility] 02/11 21:28 Order name: CBC with Diff; Complete Time: 23:[address] [facility] 02/11 21:28 Order name: LFT's; Complete Time: 23:[address] [facility] 02/11 21:28 Order name: Magnesium; Complete Time: 23:[address] [facility] 02/11 21:28 Order name: NT PRO-BNP; Complete Time: 23:[address] [facility] 02/11 21:28 Order name: PT-INR; Complete Time: 23:[address] [facility] 02/11 21:28 Order name: Troponin HS; Complete Time: 23:[address] [facility] 02/11 21:28 Order name: TSH; Complete Time: 23:[address] [facility] 02/11 21:28 Order name: Urinalysis w/ reflexes; Complete Time: 23:[address] [facility] 02/11 21:28 Order name: PREGU; Complete Time: 23:[address] [facility] 02/11 22:13 Order name: Urine Drug Screen; Complete Time: 23:30 br2 02/11 21:28 Order name: XRAY Chest (1 view) [facility] 02/11 21:28 Order name: CT Head Brain wo Cont; Complete Time: 23:[address] [facility] 02/11 21:28 Order name: EKG; Complete Time: 21:[address] [facility] 02/11 21:28 Order name: Cardiac monitoring; Complete Time: 21:[address] [facility] 02/11 21:28 Order name: EKG - Nurse/Tech; Complete Time: 21:[address] [facility] 02/11 21:28 Order name: IV Saline Lock; Complete Time: 21:[address] [facility] 02/11 21:28 Order name: Labs collected and sent; Complete Time: 21:[address] [facility] 02/11 21:28 Order name: O2 Per Protocol; Complete Time: 21:[address] [facility] 02/11 21:28 Order name: O2 Sat Monitoring; Complete Time: 21:[address] [facility] Administered Medications: 21:45 Drug: NS 0.9% IV 1000 ml IV at 1000 ml once; to be given as a bolus over 60 minutes al5 Route: IV; Rate: 1000 ml; Site: left antecubital; 23:36 Follow up: Response: No adverse reaction; IV Status: Completed infusion; IV Intake: al5 1000ml 21:46 Drug: Acetaminophen PO 1000 mg PO once Route: PO; al5 23:36 Follow up: Response: No adverse reaction; Pain is decreased al5 23:36 Drug: Potassium PO Effervescent Tablet 25 mEq PO once; dissolve in 4 ounces of water or al5 juice Route: PO; 23:50 Follow up: Response: No adverse reaction vc1 Disposition Summary: 02/11/25 23:42 Discharge Ordered Notes: Location: Home luz Problem: new luz Symptoms: have improved luz Condition: Stable luz Diagnosis - Palpitations luz - Hypokalemia luz Followup: luz - With: Private Physician - When: 2 - 3 days - Reason: Recheck today's complaints, Continuance of care, Re-evaluation by your physician Followup: luz - With: Jori Tejeda MD - When: 2 - 3 days - Reason: Recheck today's complaints, Re-evaluation by your physician Discharge Instructions: - Discharge Summary Sheet luz - Potassium Content of Foods luz - Palpitations luz - Aspirin and Your Heart luz - Palpitations, [id number] luz - Hypokalemia luz Forms: - Medication Reconciliation Form luz - Antibiotic Education luz - Prescription Opioid Use luz - Patient Portal Instructions luz - Leadership Thank You Letter luz Prescriptions: - Toprol XL 25 mg Oral Tablet - take 1 tablet ORAL route once daily; 20 tablet; Refills: 0, Product Selection luz Permitted Signatures: Dispatcher [employer] EDMS Ruben Kaur MD MD cha Bryson, James RN RN jb4 Radha Roper RN RN al5 Ilene Leavitt RN vc1 Corrections: (The following items were deleted from the chart) 21:29 21:29 BASIC METABOLIC PANEL+C.LAB.BRZ ordered. EDMD EDMS 21:29 21:29 CBC+H.LAB.BRZ ordered. EDMD EDMS 21:29 21:29 HEPATIC FUNCTION+C.LAB.BRZ ordered. EDMD EDMS 21:29 21:29 MAGNESIUM+C.LAB.BRZ ordered. EDMD EDMS 21:29 21:29 PROBNP+C.LAB.BRZ ordered. EDMD EDMS 21:29 21:29 PROTIME (+INR)+COAG.LAB.BRZ ordered. EDMD EDMS 21:29 21:29 Troponin High Sensitivity+C.LAB.BRZ ordered. EDMD EDMS 21:29 21:29 THYROID STIMULAT HORMONE+C.LAB.BRZ ordered. EDMD EDMS 21:29 21:29 Urinalysis+U.LAB.BRZ ordered. EDMD EDMS 21:29 21:29 Test, Urine+UC.LAB.BRZ ordered. EDMD EDMS 21:29 21:29 Head Brain Wo Cont+CT.RAD.BRZ ordered. EDMD EDMS 22:13 22:13 URINE DRUG SCREEN+UC.LAB.BRZ ordered. EDMS EDMS
--- NOTE | 2025-02-11 23:43 | ER ---
Nurse's Notes [facility] Name: Reina Clements Age: 39 yrs Sex: Female : 1985 Arrival Date: 02/11/2025 Time: 21:14 Bed 7 Private MD: Diagnosis: Palpitations;Hypokalemia Presentation: 02/11 21:24 Chief complaint: Patient states: I was driving home and started having a rapid pounding jb4 heart rate. I got SOB and my vision blurred. I pulled over, it got better but then it hit me again so I came here. I am currently feeling some better. Coronavirus screen: At this time, the client does not indicate any symptoms associated with coronavirus-19. Ebola Screen: No symptoms or risks identified at this time. Initial Sepsis Screen: Does the patient meet any 2 criteria? No. Patient's initial sepsis screen is negative. Does the patient have a suspected source of infection? No. Patient's initial sepsis screen is negative. Risk Assessment: Do you want to hurt yourself or someone else? Patient reports no desire to harm self or others. Onset of symptoms was February 11, 2025. Transition of care: patient was not received from another setting of care. 21:24 Method Of Arrival: Wheelchair jb4 21:24 Acuity: CHAPIN 2 jb4 Triage Assessment: 21:27 General: Appears in no apparent distress. uncomfortable, Behavior is cooperative, jb4 anxious. Pain: Complains of pain in chest Pain does not radiate. Pain currently is 7 out of 10 on a pain scale. Quality of pain is described as burning. Neuro: Level of Consciousness is awake, alert, obeys commands, Oriented to person, place, time, situation. Cardiovascular: Reports chest pain, lightheadedness, shortness of breath, Patient's skin is warm and dry. Respiratory: Airway is patent Respiratory effort is even, unlabored, Respiratory pattern is regular, symmetrical. Derm: Skin is intact, Skin is pink, warm \T\ dry. Musculoskeletal: Circulation, motion, and sensation intact. Range of motion: intact in all extremities. 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 - Infectious Disease History:: Denies. - Social history:: Smoking status: Patient reports the use of cigarette tobacco products, smokes one pack cigarettes per day. - Family history:: not pertinent. Screenin:46 [facility] ED Fall Risk Assessment (Adult) History of falling in the last 3 months, al5 including since admission No falls in past 3 months (0 pts) Confusion or Disorientation No (0 pts) Intoxicated or Sedated No (0 pts) Impaired Gait No (0 pts) Mobility Assist Device Used No (0 pt) Altered Elimination No (0 pt) Score/Fall Risk Level 0 - 2 = Low Risk Oriented to surroundings, Maintained a safe environment, Hourly rounding (assess needs \T\ fall precautionary measures) done. Abuse screen: Denies threats or abuse. Denies injuries from another. Nutritional screening: No deficits noted. Tuberculosis screening: No symptoms or risk factors identified. Assessment: 21:47 General: Appears in no apparent distress. comfortable, Behavior is cooperative, al5 anxious. Pain: Complains of pain in head Pain began suddenly. Neuro: Level of Consciousness is awake, alert, obeys commands, Oriented to person, place, time, situation. Cardiovascular: Reports palpitations, blurred vision Capillary refill < 3 seconds Patient's skin is warm and dry. Rhythm is sinus rhythm. Respiratory: Airway is patent Respiratory effort is even, unlabored, Respiratory pattern is regular, symmetrical. GI: No signs and/or symptoms were reported involving the gastrointestinal system. : No signs and/or symptoms were reported regarding the genitourinary system. EENT: No signs and/or symptoms were reported regarding the EENT system. Derm: Skin is intact, is healthy with good turgor, Skin is pink, warm \T\ dry. normal. Musculoskeletal: No signs and/or symptoms reported regarding the musculoskeletal system. 23:09 Reassessment: Patient appears in no apparent distress at this time. No changes from vc1 previously documented assessment. Patient and/or family updated on plan of care and expected duration. Pain level reassessed. Patient is alert, oriented x 3, equal unlabored respirations, skin warm/dry/pink. 23:30 Reassessment: Patient appears in no apparent distress at this time. Patient and/or al5 family updated on plan of care and expected duration. Pain level reassessed. Patient is alert, oriented x 3, equal unlabored respirations, skin warm/dry/pink. Patient states feeling better. Patient states symptoms have improved. Vital Signs: 21:24 BP 146 / 96; Pulse 95; Resp 20; Temp 97.6(O); Pulse Ox 100% on R/A; Weight 65.77 kg jb4 (R); Height 5 ft. 3 in. (R); Pain 7/10; 22:15 BP 109 / 78; Pulse 76; Resp 22; Pulse Ox 99% ; vc1 23:00 BP 102 / 69; Pulse 67; Resp 21; Pulse Ox 100% ; vc1 23:51 BP 106 / 68; Pulse 58; Resp 18; Pulse Ox 100% ; al5 21:24 Body Mass Index 25.69 (65.77 kg, 160.02 cm) jb4 21:24 Pain Scale: Adult 4 ED Course: 21:17 Patient arrived in ED. jj6 21:22 Ruben Kaur MD is Attending Physician[facility] 21:27 Triage completed. jb4 21:27 Arm band placed on. jb4 21:29 Radha Roper, BRIDGETT is Primary Nurse. al5 21:46 Patient has correct armband on for positive identification. Call light in reach. Side al5 rails up X2. s/o at bedside. Provided Education on: plan of care. Client placed on continuous cardiac and pulse oximetry monitoring. NIBP monitoring applied. nuclear monitoring technician on. 21:46 No provider procedures requiring assistance completed. Inserted saline lock: 22 gauge al5 in left antecubital area, using aseptic technique. Blood collected. Flushed with 10 mL NS. Patient maintains SpO2 saturation greater than 95% on room air. 22:01 CT Head Brain wo Cont In Process Unspecified. EDMS 22:53 XRAY Chest (1 view) In Process Unspecified. EDMS 23:41 Jori Tejeda MD is Referral Physician. luz 23:50 IV discontinued, intact, bleeding controlled, No redness/swelling at site. Pressure al5 dressing applied. Administered Medications: 21:45 Drug: NS 0.9% IV 1000 ml IV at 1000 ml once; to be given as a bolus over 60 minutes al5 Route: IV; Rate: 1000 ml; Site: left antecubital; 23:36 Follow up: Response: No adverse reaction; IV Status: Completed infusion; IV Intake: al5 1000ml 21:46 Drug: Acetaminophen PO 1000 mg PO once Route: PO; al5 23:36 Follow up: Response: No adverse reaction; Pain is decreased al5 23:36 Drug: Potassium PO Effervescent Tablet 25 mEq PO once; dissolve in 4 ounces of water or al5 juice Route: PO; 23:50 Follow up: Response: No adverse reaction vc1 Medication: 21:48 VIS not applicable for this client. al5 Intake: 23:36 IV: 1000ml; Total: 1000ml. al5 Outcome: 23:42 Discharge ordered by MD. escobar 23:50 Discharged to home ambulatory, with significant other, al5 23:50 Condition: good 23:50 Discharge instructions given to patient, Instructed on discharge instructions, follow up and referral plans. medication usage, Demonstrated understanding of instructions, follow-up care, medications, Prescriptions given X 1, 23:51 Patient left the ED. al5 Signatures: Dispatcher [employer] EDRuben Solitario MD MD cha Bryson, James, RN RN jb4 Merissa Guoj6 Ilene Leavitt RN RN vc1 Radha Roper RN RN al5
[2025-02-12] VITALS: TEMP 97.6; O2SAT 100
[2025-02-12 00:16] VITALS: BP 106/68
--- NOTE | 2025-02-12 00:28 | RAD REPORT ---
EXAM: Chest Single View CLINICAL INDICATION: 39-year-old female with palpitations. TECHNIQUE: Single view, AP portable chest was obtained. COMPARISON: None. FINDINGS: Unremarkable cardiac and mediastinal silhouette. Heart size is normal. Lungs are clear without focal opacity, pneumothorax or pleural effusions. The visualized bones are within normal limits. IMPRESSION: No acute pulmonary abnormalities. Electronically signed by: Mary Anne Salomon MD 02/11/2025 11:20 PM CDT RP Due to temporary technical issues with the PACS/[employer] reporting system, reports are being signed by the in-house radiologist without review as a courtesy to ensure prompt reporting the interpreting radiologist is fully responsible for the content of the report. Transcribed Date/Time: 02/12/2025 12:28 AM
--- NOTE | 2025-02-12 11:29 | EKG ---
Test Date: 2025-02-11 Test Time: 21:30:00 Sound Person: MEASUREMENT RESULTS: Intervals: Rate: 85 AR: 154 QRSD: 76 QT: 358 QTc: 426 [place]: P: 69 AR: 154 QRS: 13 T: 55 INTERPRETIVE STATEMENTS: Normal sinus rhythm Normal ECG Compared to ECG 01/06/2025 16:39:56 Myocardial infarct finding no longer present Electronically Signed On 02-12-25 11:28:40 CDT by Francisco Reed
== END 2025-02-11 23:51 | disposition home or self-care (01) ==
LOC: ER 21:14
DX: E87.6 Hypokalemia (principal); F17.210 Nicotine dependence, cigarettes, uncomplicated
CPT/HCPCS: 96361; 93005; 85025; 81001; 80048; 36415; 83735; 81025; 85610; 80076; 84443; 84484; 83880; 80307; 70450; 71045; 96360; 99285; J7030